=== PATIENT | female | born 1950 | race Caucasian/White ===

== ENCOUNTER 2020-07-01 14:11 | Outpatient (CLI) | payer MEDICARE | END 2020-07-01 14:12 | disposition home or self-care (01) | LOC: BICMAMMO 14:11 | PROVIDERS: ATTEND Family Medicine Sports Medicine | DX: Z12.31 Encounter for screening mammogram for malignant neoplasm of breast (principal); Z13.820 Encounter for screening for osteoporosis; M85.859 Other specified disorders of bone density and structure, unspecified thigh; Z78.0 Asymptomatic menopausal state | CPT/HCPCS: 77063; 77067; 77080 ==

== ENCOUNTER 2020-12-19 02:48 | Inpatient (IN) | payer MEDICARE ==
[2020-12-19] MEDS ORDERED: Albuterol 200 PUFF (6.7GM INHALER) ONE (03:21)
[2020-12-19] MEDS ORDERED: methylPREDNISolone Sod Succ/PF 125 MG/2 ML VIAL ONE (03:22)
[2020-12-19 03:49] LABS: #Eosinphils 0.1 thou/uL (0.0-0.7); #Lymphocytes 1.4 thou/uL (1.20-3.40); #Monocytes 0.6 thou/uL (0.11-0.59); #Neutrophils 4.1 thou/uL (1.40-6.50); %Basophils 0.6 % (0.0-1.0); %Eosinophils 0.8 % (0.0-10.0); %Lymphocytes 23.1 % (21.0-51.0); %Monocytes 9.6 % (0.0-10.0); %Neutrophils 65.8 % (42.0-75.0); Hemoglobin 12.3 g/dL (12.0-16.0); Mean Corpuscular HGB CONC 33.2 g/dL (32.0-36.0); Mean Corpuscular Hemoglobin 30.8 pg (27.0-31.0); Mean Corpuscular Volume 92.7 fL (78.0-98.0); Mean Platelet Volume 7.3 fL (7.4-10.4); Platelet Count 274 thou/uL (130-400); RBC Distribution Width 13.2 % (11.5-14.5); Red Blood Cell (RBC) Count 3.98 mill/uL (4.20-5.40); White Blood Cell (WBC) Count 6.2 thou/uL (4.8-10.8)
[2020-12-19 03:51] LABS: Albumin 3.4 g/dL (3.4-4.8)
[2020-12-19 03:52] LABS: Chloride 105 mmol/L (98-107); Potassium 3.1 mmol/L (3.5-5.1); Sodium 140 mmol/L (136-145)
[2020-12-19 03:53] LABS: Calcium 8.6 mg/dL (7.8-10.44); Glucose 130 mg/dL (83-110)
[2020-12-19 03:54] LABS: Globulin 2.9 g/dL (2.4-3.5); Protein, Total 6.3 g/dL (5.8-8.1)
[2020-12-19 03:55] LABS: Anion Gap 11 mmol/L (10-20); Bilirubin, Total 0.5 mg/dL (0.2-1.2); Carbon Dioxide 27 mmol/L (23-31)
[2020-12-19 03:56] LABS: Alkaline Phosphatase 116 U/L (40-110)
[2020-12-19 03:57] LABS: Calc. Creatinine Clearance 0 mL/min (70-130)
[2020-12-19 03:58] LABS: BUN (Urea Nitrogen) 11 mg/dL (9.8-20.1)
[2020-12-19 03:59] LABS: ALT (SGPT) 11 U/L (8-55); AST (SGOT) 26 U/L (5-34)
[2020-12-19 04:37] LABS: CKMB 22.9 ng/mL (0-6.6)
[2020-12-19] MEDS ORDERED: Furosemide 40 MG/4 ML VIAL ONE (04:41)
[2020-12-19] MEDS ORDERED: Aspirin 325 MG TAB ONE (04:41)
[2020-12-19] MEDS ORDERED: Furosemide 40 MG TAB ONE (04:41)
[2020-12-19] MEDS ORDERED: Ondansetron ODT 4 MG TAB PO PRN (08:53)
[2020-12-19] MEDS ORDERED: methylPREDNISolone Sod Succ/PF 125 MG/2 ML VIAL IVP SCH (09:00)
[2020-12-19] MEDS ORDERED: Enoxaparin Sodium 120 MG/0.8 ML SYRINGE SC SCH (09:00)
[2020-12-19] MEDS ORDERED: Aspirin 325 mg Enteric Coated Tablet PO SCH (09:00)
[2020-12-19] MEDS ORDERED: methylPREDNISolone Sod Succ/PF 125 MG/2 ML VIAL IVP ONE (09:00)
[2020-12-19] MEDS: Famotidine 20 MG TAB PO SCH ×2 (09:09→21:03)
[2020-12-19] MEDS ORDERED: Bacteriostatic Water 30 ML VIAL FS PRN (09:15)
[2020-12-19] MEDS ORDERED: Iopamidol 370 76% 100 ML VIAL ONE (09:35)
[2020-12-19 10:37] LABS: Critical Call Chem Troponin I RESULT DECREASING; Troponin I 2.326 ng/mL (< 0.028)
[2020-12-19] MEDS: Dextrose 5 % And 0.9 % NaCl 1,000 ML IV SCH ×2 (12:16→21:18)
[2020-12-19] MEDS: Nicotine 14 MG PATCH TD SCH (12:31)
[2020-12-19] MEDS ORDERED: Sodium Chloride 0.9% 1,000 ML IV SCH ×2 (12:45→14:45)
[2020-12-19 12:49] VITALS: BMI 29.7
[2020-12-19] MEDS ORDERED: Fentanyl 100 MCG/2 ML VIAL ONE (13:40)
[2020-12-19] MEDS ORDERED: Midazolam HCl 2 mg/2 ml Vial ONE (13:40)
[2020-12-19] MEDS ORDERED: Sodium Chloride 0.9% 200 ML IV PRN (14:34)
[2020-12-19] MEDS ORDERED: Nitroglycerin 0.4 MG TAB (25 Tab Bottle) SL PRN (14:34)
[2020-12-19] MEDS: Acetaminophen/Codeine 30-300mg Tablet PO PRN ×2 (16:48→21:03)
[2020-12-19] MEDS ORDERED: Atorvastatin Calcium 40 MG TAB PO SCH (21:00)
[2020-12-20 06:15] LABS: #Lymphocytes 1.9 thou/uL (1.20-3.40); #Monocytes 1.3 thou/uL (0.11-0.59); #Neutrophils 7.7 thou/uL (1.40-6.50); %Basophils 0.1 % (0.0-1.0); %Eosinophils 0.2 % (0.0-10.0); %Lymphocytes 17.6 % (21.0-51.0); %Monocytes 11.5 % (0.0-10.0); %Neutrophils 70.7 % (42.0-75.0); Hemoglobin 12.1 g/dL (12.0-16.0); Mean Corpuscular HGB CONC 32.5 g/dL (32.0-36.0); Mean Corpuscular Hemoglobin 30.4 pg (27.0-31.0); Mean Corpuscular Volume 93.3 fL (78.0-98.0); Mean Platelet Volume 7.8 fL (7.4-10.4); Platelet Count 330 thou/uL (130-400); RBC Distribution Width 13.3 % (11.5-14.5); White Blood Cell (WBC) Count 10.9 thou/uL (4.8-10.8)
[2020-12-20 06:33] LABS: ALT (SGPT) 11 U/L (8-55); AST (SGOT) 19 U/L (5-34); Albumin 3.3 g/dL (3.4-4.8); Alkaline Phosphatase 104 U/L (40-110); Anion Gap 13 mmol/L (10-20); BUN (Urea Nitrogen) 17 mg/dL (9.8-20.1); Bilirubin, Total 0.5 mg/dL (0.2-1.2); Calc. Creatinine Clearance 85 mL/min (70-130); Calcium 8.8 mg/dL (7.8-10.44); Carbon Dioxide 27 mmol/L (23-31); Chloride 105 mmol/L (98-107); Globulin 2.8 g/dL (2.4-3.5); Glucose 119 mg/dL (83-110); Potassium 3.4 mmol/L (3.5-5.1); Protein, Total 6.1 g/dL (5.8-8.1); Sodium 142 mmol/L (136-145)
[2020-12-20 09:16] LABS: Magnesium 2.1 mg/dL (1.6-2.6)
[2020-12-20] MEDS: Clopidogrel Bisulfate 75 MG TAB PO SCH (10:02)
[2020-12-20] MEDS: Famotidine 20 MG TAB PO SCH ×2 (10:02→21:13)
[2020-12-20] MEDS: Aspirin 81 mg Enteric Coated Tablet PO SCH (10:02)
[2020-12-20] MEDS: Nicotine 14 MG PATCH TD SCH (10:03)
[2020-12-20] MEDS ORDERED: Melatonin 3 MG TAB PO PRN ×2 (10:55→18:29)
[2020-12-20] MEDS ORDERED: traMADol HCl 50 MG TAB PO PRN (10:57)
[2020-12-20] MEDS ORDERED: Cefdinir 300 MG CAP PO SCH (11:00)
[2020-12-20] MEDS ORDERED: predniSONE 20 MG TAB PO SCH (11:00)
[2020-12-20] MEDS ORDERED: Furosemide 20 MG/2 ML VIAL SLOW IVP SCH (11:15)
[2020-12-20] MEDS: Potassium Chloride 20 MEQ TAB PO SCH ×2 (12:12→18:12)
[2020-12-20] MEDS: predniSONE 20 MG TAB PO SCH (18:12)
[2020-12-20] MEDS: Doxycycline 100 MG CAP PO SCH (21:12)
[2020-12-20] MEDS: guaiFENesin ER 600 MG TAB PO SCH (21:13)
[2020-12-20] MEDS: Cholecalciferol 1,000 UNITS (25 MCG) TAB PO SCH (21:13)
[2020-12-20] MEDS: Cefdinir 300 MG CAP PO SCH (21:13)
[2020-12-20] MEDS: Melatonin 3 MG TAB PO SCH (21:15)
[2020-12-21 05:42] LABS: #Lymphocytes 1.4 thou/uL (1.20-3.40); #Monocytes 0.6 thou/uL (0.11-0.59); %Basophils 0.2 % (0.0-1.0); %Eosinophils 0.1 % (0.0-10.0); %Lymphocytes 19.6 % (21.0-51.0); %Monocytes 8.1 % (0.0-10.0); Hemoglobin 11.4 g/dL (12.0-16.0); Mean Corpuscular HGB CONC 32.9 g/dL (32.0-36.0); Mean Corpuscular Hemoglobin 30.7 pg (27.0-31.0); Mean Corpuscular Volume 93.3 fL (78.0-98.0); Mean Platelet Volume 7.3 fL (7.4-10.4); Platelet Count 319 thou/uL (130-400); RBC Distribution Width 13.2 % (11.5-14.5)
[2020-12-21 06:16] LABS: Anion Gap 16 mmol/L (10-20); BUN (Urea Nitrogen) 16 mg/dL (9.8-20.1); Calc. Creatinine Clearance 89 mL/min (70-130); Calcium 8.3 mg/dL (7.8-10.44); Carbon Dioxide 24 mmol/L (23-31); Chloride 102 mmol/L (98-107); Glucose 120 mg/dL (83-110); Potassium 3.5 mmol/L (3.5-5.1); Sodium 138 mmol/L (136-145)
[2020-12-21] MEDS: DULoxetine 30 MG CAP PO SCH (08:52)
[2020-12-21] MEDS: Potassium Chloride 20 MEQ TAB PO SCH (08:52)
[2020-12-21] MEDS: Cefdinir 300 MG CAP PO SCH ×2 (08:52→21:16)
[2020-12-21] MEDS: Ezetimibe 10 MG TAB PO SCH (08:52)
[2020-12-21] MEDS: guaiFENesin ER 600 MG TAB PO SCH ×2 (08:52→21:16)
[2020-12-21] MEDS: Aspirin 81 mg Enteric Coated Tablet PO SCH (08:53)
[2020-12-21] MEDS: Doxycycline 100 MG CAP PO SCH ×2 (08:53→21:15)
[2020-12-21] MEDS: Clopidogrel Bisulfate 75 MG TAB PO SCH (08:53)
[2020-12-21] MEDS: predniSONE 20 MG TAB PO SCH ×2 (08:53→17:56)
[2020-12-21] MEDS: Famotidine 20 MG TAB PO SCH ×2 (08:53→21:16)
[2020-12-21] MEDS: Nicotine 14 MG PATCH TD SCH (09:00)
[2020-12-21] MEDS ORDERED: Atorvastatin Calcium 40 MG TAB PO SCH (21:00)
[2020-12-21] MEDS: Cholecalciferol 1,000 UNITS (25 MCG) TAB PO SCH (21:15)
[2020-12-21] MEDS: Melatonin 3 MG TAB PO SCH (21:18)
[2020-12-21] MEDS: Acetaminophen/Codeine 30-300mg Tablet PO PRN (21:18)
[2020-12-22 06:57] LABS: #Lymphocytes 1.1 thou/uL (1.20-3.40); #Monocytes 0.7 thou/uL (0.11-0.59); #Neutrophils 3.7 thou/uL (1.40-6.50); %Basophils 0.3 % (0.0-1.0); %Eosinophils 0.2 % (0.0-10.0); %Lymphocytes 19.6 % (21.0-51.0); %Monocytes 12.4 % (0.0-10.0); %Neutrophils 67.6 % (42.0-75.0); Hemoglobin 10.9 g/dL (12.0-16.0); Mean Corpuscular HGB CONC 33.8 g/dL (32.0-36.0); Mean Corpuscular Hemoglobin 31.5 pg (27.0-31.0); Mean Corpuscular Volume 93.2 fL (78.0-98.0); Mean Platelet Volume 7.7 fL (7.4-10.4); Platelet Count 291 thou/uL (130-400); RBC Distribution Width 13.1 % (11.5-14.5); Red Blood Cell (RBC) Count 3.45 mill/uL (4.20-5.40); White Blood Cell (WBC) Count 5.5 thou/uL (4.8-10.8)
[2020-12-22 07:09] LABS: Anion Gap 11 mmol/L (10-20); BUN (Urea Nitrogen) 14 mg/dL (9.8-20.1); Calc. Creatinine Clearance 97 mL/min (70-130); Calcium 8.5 mg/dL (7.8-10.44); Carbon Dioxide 27 mmol/L (23-31); Chloride 103 mmol/L (98-107); Glucose 112 mg/dL (83-110); Potassium 3.8 mmol/L (3.5-5.1); Sodium 137 mmol/L (136-145)
[2020-12-22] MEDS: Isosorbide Dinitrate 5 MG TAB PO SCH ×2 (09:30→21:01)
[2020-12-22] MEDS: Aspirin 81 mg Enteric Coated Tablet PO SCH (09:32)
[2020-12-22] MEDS: Doxycycline 100 MG CAP PO SCH ×2 (09:32→20:58)
[2020-12-22] MEDS: Ezetimibe 10 MG TAB PO SCH (09:32)
[2020-12-22] MEDS: Cefdinir 300 MG CAP PO SCH ×2 (09:32→18:48)
[2020-12-22] MEDS: Potassium Chloride 20 MEQ TAB PO SCH (09:33)
[2020-12-22] MEDS: guaiFENesin ER 600 MG TAB PO SCH ×2 (09:33→20:58)
[2020-12-22] MEDS: Famotidine 20 MG TAB PO SCH ×2 (09:33→20:58)
[2020-12-22] MEDS: predniSONE 20 MG TAB PO SCH ×2 (09:33→17:28)
[2020-12-22] MEDS: Clopidogrel Bisulfate 75 MG TAB PO SCH (09:34)
[2020-12-22] MEDS: DULoxetine 30 MG CAP PO SCH (09:35)
[2020-12-22] MEDS: Nicotine 14 MG PATCH TD SCH (09:42)
[2020-12-22] MEDS ORDERED: Cefdinir 300 MG CAP PO SCH (09:45)
[2020-12-22] MEDS: Cholecalciferol 1,000 UNITS (25 MCG) TAB PO SCH (20:58)
[2020-12-22] MEDS: Acetaminophen/Codeine 30-300mg Tablet PO PRN (20:59)
[2020-12-22] MEDS: Melatonin 3 MG TAB PO SCH (20:59)
[2020-12-23] MEDS: Cefdinir 300 MG CAP PO SCH (06:23)
[2020-12-23] MEDS: Famotidine 20 MG TAB PO SCH (09:14)
[2020-12-23] MEDS: Aspirin 81 mg Enteric Coated Tablet PO SCH (09:14)
[2020-12-23] MEDS: predniSONE 20 MG TAB PO SCH (09:14)
[2020-12-23] MEDS: Isosorbide Dinitrate 5 MG TAB PO SCH (09:14)
[2020-12-23] MEDS: DULoxetine 30 MG CAP PO SCH (09:14)
[2020-12-23] MEDS: Clopidogrel Bisulfate 75 MG TAB PO SCH (09:14)
[2020-12-23] MEDS: Doxycycline 100 MG CAP PO SCH (09:14)
[2020-12-23] MEDS: guaiFENesin ER 600 MG TAB PO SCH (09:15)
[2020-12-23] MEDS: Ezetimibe 10 MG TAB PO SCH (09:15)
[2020-12-23] MEDS: Potassium Chloride 20 MEQ TAB PO SCH (09:15)
[2020-12-23 11:56] VITALS: BP 134/69; TEMP 98.4
== END 2020-12-23 13:58 | disposition home or self-care (01) | DRG 280 ==
LOC: ERS 02:48 → 3SE 04:53
PROVIDERS: ADMIT Internal Medicine; ATTEND Internal Medicine
PROC: 4A023N7 Measurement of Cardiac Sampling and Pressure, Left Heart, Percutaneous Approach (ICD-10-PCS; principal; 2020-12-19)
PROC: B2111ZZ Fluoroscopy of Multiple Coronary Arteries using Low Osmolar Contrast (ICD-10-PCS; 2020-12-19)
DX: I11.0 Hypertensive heart disease with heart failure (principal); J96.01 Acute respiratory failure with hypoxia; I21.A1 Myocardial infarction type 2; J44.1 Chronic obstructive pulmonary disease with (acute) exacerbation; I50.33 Acute on chronic diastolic (congestive) heart failure; I25.110 Atherosclerotic heart disease of native coronary artery with unstable angina pectoris; E87.6 Hypokalemia; F17.210 Nicotine dependence, cigarettes, uncomplicated; D53.9 Nutritional anemia, unspecified; E78.5 Hyperlipidemia, unspecified; I08.1 Rheumatic disorders of both mitral and tricuspid valves; R53.81 Other malaise; I95.9 Hypotension, unspecified; I48.91 Unspecified atrial fibrillation; Z88.1 Allergy status to other antibiotic agents; Z88.2 Allergy status to sulfonamides; Z71.6 Tobacco abuse counseling
CPT/HCPCS: 36415; 71045; 71046; 80048; 80053; 82553; 83735; 83880; 84484; 85025; 93005; 93306; 93458; 94640; 96374; 96375; 99152; J1940; J2250; J2930; J3010; J7042; J7050; J7512; J7620; Q9967; U0003; U0005

== ENCOUNTER 2020-12-30 08:39 | Inpatient (IN) | payer MEDICARE ==
[2020-12-30] MEDS ORDERED: Dexamethasone 10 MG/ML VIAL ONE (09:25)
[2020-12-30] MEDS ORDERED: Aspirin Chewable 81 MG TAB ONE (09:25)
[2020-12-30] MEDS ORDERED: Magnesium 2 GM/50 ML BAG (IN WATER) ONE (09:25)
[2020-12-30 09:46] LABS: Actual Bicarbonate (HCO3v) 26 mEq/L (22-28); Analyzer IN Cardio ER; Base Excess 2.2 mEq/L (-2.0 to +3.0); Calcium, Ionized (venous) 1.06 mmol/L (1.16-1.32); Chloride (VBG) 105 mmol/L (98-106); Hemoglobin (Hb) 11.8 g/dL (11.7-16.1); Potassium (VBG) 2.78 mmol/L (3.70-5.30); Sodium 136.6 mmol/L (133-146); pH (venous) 7.44 (7.32-7.43)
[2020-12-30] MEDS ORDERED: Ipratropium Bromide 2.5 ml Neb ONE (09:57)
[2020-12-30] MEDS ORDERED: Albuterol Sulfate 2.5 mg/0.5 ml Neb ONE (09:57)
[2020-12-30 09:59] LABS: #Lymphocytes 1.2 thou/uL (1.20-3.40); #Monocytes 0.8 thou/uL (0.11-0.59); #Neutrophils 7.7 thou/uL (1.40-6.50); %Basophils 0.2 % (0.0-1.0); %Eosinophils 0.3 % (0.0-10.0); %Lymphocytes 12.5 % (21.0-51.0); %Monocytes 8.4 % (0.0-10.0); %Neutrophils 78.7 % (42.0-75.0); Hemoglobin 10.5 g/dL (12.0-16.0); Mean Corpuscular HGB CONC 31.8 g/dL (32.0-36.0); Mean Corpuscular Hemoglobin 29.5 pg (27.0-31.0); Mean Corpuscular Volume 92.6 fL (78.0-98.0); Mean Platelet Volume 7.3 fL (7.4-10.4); Platelet Count 318 thou/uL (130-400); RBC Distribution Width 13.4 % (11.5-14.5); Red Blood Cell (RBC) Count 3.56 mill/uL (4.20-5.40); White Blood Cell (WBC) Count 9.7 thou/uL (4.8-10.8)
[2020-12-30] MEDS ORDERED: Cefepime 2 GM VIAL ONE (10:09)
[2020-12-30 10:19] LABS: ALT (SGPT) 9 U/L (8-55); AST (SGOT) 12 U/L (5-34); Albumin 3.1 g/dL (3.4-4.8); Alkaline Phosphatase 73 U/L (40-110); Anion Gap 12 mmol/L (10-20); BUN (Urea Nitrogen) 15 mg/dL (9.8-20.1); Bilirubin, Total 0.5 mg/dL (0.2-1.2); Calc. Creatinine Clearance 0 mL/min (70-130); Calcium 8.6 mg/dL (7.8-10.44); Carbon Dioxide 27 mmol/L (23-31); Chloride 106 mmol/L (98-107); Globulin 2.7 g/dL (2.4-3.5); Glucose 120 mg/dL (83-110); Protein, Total 5.8 g/dL (5.8-8.1); Sodium 142 mmol/L (136-145)
[2020-12-30 10:28] LABS: Potassium 2.9 mmol/L (3.5-5.1)
[2020-12-30 10:47] LABS: CKMB 1.9 ng/mL (0-6.6)
[2020-12-30] MEDS ORDERED: Potassium Chloride 20 MEQ TAB ONE (12:08)
[2020-12-30 12:24] LABS: Magnesium 1.7 mg/dL (1.6-2.6)
[2020-12-30] MEDS ORDERED: VANCOMYCIN 1.25 GM/250 ML BAG 1.25 GM in Premix Bag 1 BAG IVPB SCH (12:45)
[2020-12-30 14:43] LABS: Troponin I 0.279 ng/mL (< 0.028)
[2020-12-30 14:45] LABS: Anion Gap 10 mmol/L (10-20); BUN (Urea Nitrogen) 14 mg/dL (9.8-20.1); Calc. Creatinine Clearance 0 mL/min (70-130); Calcium 8.3 mg/dL (7.8-10.44); Carbon Dioxide 27 mmol/L (23-31); Chloride 107 mmol/L (98-107); Glucose 138 mg/dL (83-110); Potassium 3.2 mmol/L (3.5-5.1); Sodium 141 mmol/L (136-145)
[2020-12-30] MEDS ORDERED: Dextrose 5% in Water 1,000 ML IV PRN (15:06)
[2020-12-30] MEDS ORDERED: Dextrose 50% Abboject 50 ML SYRINGE SLOW IVP PRN (15:06)
[2020-12-30] MEDS ORDERED: HumaLOG 300 UNITS/3 ML VIAL SC PRN ×2 (15:06)
[2020-12-30] MEDS: Acetaminophen 325 MG TAB PO PRN (15:40)
[2020-12-30 15:56] VITALS: BMI 30.7
[2020-12-30] MEDS ORDERED: Non-Formulary Item 1 EACH (Albuterol Sulfate Hfa (Or) 200 PUFF Inh) INH PRN (16:50)
[2020-12-30 17:18] LABS: Troponin I 0.258 ng/mL (< 0.028)
[2020-12-30] MEDS: Cefepime 1 GM in Sodium Chloride 0.9% 100 ML IVPB SCH (17:31)
[2020-12-30] MEDS ORDERED: Cyclobenzaprine 10 MG TAB PO SCH (20:30)
[2020-12-30] MEDS: Famotidine 20 MG TAB PO SCH (20:38)
[2020-12-30] MEDS ORDERED: methylPREDNISolone Sod Succ/PF 125 MG/2 ML VIAL IVP SCH (23:15)
[2020-12-31] MEDS: Cefepime 1 GM in Sodium Chloride 0.9% 100 ML IVPB SCH ×2 (01:19→11:56)
[2020-12-31] MEDS: methylPREDNISolone Sod Succ 40 MG VIAL IVP SCH ×2 (06:13→19:32)
[2020-12-31] MEDS: Acetaminophen 325 MG TAB PO PRN ×2 (06:15→21:00)
[2020-12-31] MEDS: DULoxetine 30 MG CAP PO SCH (08:16)
[2020-12-31] MEDS: Famotidine 20 MG TAB PO SCH (08:16)
[2020-12-31] MEDS: Enoxaparin Sodium 40 MG/0.4 ML SYRINGE SC SCH (08:16)
[2020-12-31] MEDS: Ezetimibe 10 MG TAB PO SCH (08:16)
[2020-12-31] MEDS: Aspirin Chewable 81 MG TAB PO SCH (08:16)
[2020-12-31] MEDS: Isosorbide Dinitrate 5 MG TAB PO SCH (08:17)
[2020-12-31] MEDS: Clopidogrel Bisulfate 75 MG TAB PO SCH (08:17)
[2020-12-31] MEDS ORDERED: Nitroglycerin 0.4 MG TAB (25 Tab Bottle) SL PRN (09:11)
[2020-12-31] MEDS ORDERED: Furosemide 40 MG/4 ML VIAL SLOW IVP SCH (09:15)
[2020-12-31 09:31] LABS: #Monocytes 0.4 thou/uL (0.11-0.59); #Neutrophils 13.4 thou/uL (1.40-6.50); %Basophils 0.1 % (0.0-1.0); %Eosinophils 0.1 % (0.0-10.0); %Lymphocytes 6.5 % (21.0-51.0); %Monocytes 2.5 % (0.0-10.0); %Neutrophils 90.8 % (42.0-75.0); Hemoglobin 10.8 g/dL (12.0-16.0); Mean Corpuscular Volume 94.1 fL (78.0-98.0); Mean Platelet Volume 7.3 fL (7.4-10.4); Platelet Count 294 thou/uL (130-400); RBC Distribution Width 13.3 % (11.5-14.5); Red Blood Cell (RBC) Count 3.48 mill/uL (4.20-5.40); White Blood Cell (WBC) Count 14.8 thou/uL (4.8-10.8)
[2020-12-31 09:59] LABS: Anion Gap 14 mmol/L (10-20); BUN (Urea Nitrogen) 15 mg/dL (9.8-20.1); Calc. Creatinine Clearance 84 mL/min (70-130); Calcium 8.4 mg/dL (7.8-10.44); Carbon Dioxide 21 mmol/L (23-31); Chloride 108 mmol/L (98-107); Glucose 178 mg/dL (83-110); Magnesium 2.3 mg/dL (1.6-2.6); Sodium 139 mmol/L (136-145)
[2020-12-31] MEDS ORDERED: Vancomycin HCl 1.25 GM in Sodium Chloride 0.9% 250 ML 250 ML IVPB SCH (14:00)
[2020-12-31] MEDS: Cefepime 2 GM in Sodium Chloride 0.9% 100 ML IVPB SCH (19:32)
[2020-12-31] MEDS ORDERED: Non-Formulary Item 1 EACH (Melatonin [Melatonin] 10 MG Tablet) PO SCH (21:00)
[2020-12-31] MEDS: Melatonin 3 MG TAB PO SCH (21:01)
[2021-01-01] MEDS: Cefepime 2 GM in Sodium Chloride 0.9% 100 ML IVPB SCH ×3 (02:24→18:33)
[2021-01-01 04:55] LABS: #Monocytes 0.9 thou/uL (0.11-0.59); %Basophils 0.1 % (0.0-1.0); %Eosinophils 0.1 % (0.0-10.0); %Lymphocytes 5.6 % (21.0-51.0); %Neutrophils 89.3 % (42.0-75.0); Hemoglobin 9.8 g/dL (12.0-16.0); Mean Corpuscular HGB CONC 33.2 g/dL (32.0-36.0); Mean Corpuscular Hemoglobin 31.2 pg (27.0-31.0); Mean Corpuscular Volume 93.8 fL (78.0-98.0); Mean Platelet Volume 7.7 fL (7.4-10.4); Platelet Count 285 thou/uL (130-400); RBC Distribution Width 13.5 % (11.5-14.5); Red Blood Cell (RBC) Count 3.16 mill/uL (4.20-5.40)
[2021-01-01 05:21] LABS: Anion Gap 10 mmol/L (10-20); BUN (Urea Nitrogen) 20 mg/dL (9.8-20.1); Calc. Creatinine Clearance 93 mL/min (70-130); Calcium 8.5 mg/dL (7.8-10.44); Carbon Dioxide 26 mmol/L (23-31); Chloride 106 mmol/L (98-107); Glucose 145 mg/dL (83-110); Potassium 3.5 mmol/L (3.5-5.1); Sodium 138 mmol/L (136-145)
[2021-01-01] MEDS: methylPREDNISolone Sod Succ 40 MG VIAL IVP SCH ×2 (05:26→18:35)
[2021-01-01] MEDS ORDERED: Cholecalciferol 1,000 UNITS (25 MCG) TAB PO SCH (09:00)
[2021-01-01] MEDS: Cholecalciferol 1,000 UNITS (25 MCG) TAB PO SCH (09:19)
[2021-01-01] MEDS: Isosorbide Dinitrate 5 MG TAB PO SCH (09:19)
[2021-01-01] MEDS: Clopidogrel Bisulfate 75 MG TAB PO SCH (09:20)
[2021-01-01] MEDS: DULoxetine 30 MG CAP PO SCH (09:20)
[2021-01-01] MEDS: Ezetimibe 10 MG TAB PO SCH (09:20)
[2021-01-01] MEDS: Aspirin Chewable 81 MG TAB PO SCH (09:21)
[2021-01-01] MEDS: Enoxaparin Sodium 40 MG/0.4 ML SYRINGE SC SCH (09:27)
[2021-01-01] MEDS ORDERED: Furosemide 40 MG/4 ML VIAL SLOW IVP SCH (09:30)
[2021-01-01] MEDS: Acetaminophen/Codeine 30-300mg Tablet PO PRN (18:32)
[2021-01-01] MEDS: Melatonin 3 MG TAB PO SCH (19:59)
[2021-01-02] MEDS: Acetaminophen/Codeine 30-300mg Tablet PO PRN ×2 (02:59→20:14)
[2021-01-02] MEDS: Cefepime 2 GM in Sodium Chloride 0.9% 100 ML IVPB SCH ×3 (03:00→18:15)
[2021-01-02 05:19] LABS: #Eosinphils 0.1 thou/uL (0.0-0.7); #Monocytes 0.6 thou/uL (0.11-0.59); #Neutrophils 11.5 thou/uL (1.40-6.50); %Basophils 0.1 % (0.0-1.0); %Eosinophils 0.9 % (0.0-10.0); %Lymphocytes 7.8 % (21.0-51.0); %Monocytes 4.7 % (0.0-10.0); %Neutrophils 86.6 % (42.0-75.0); Hemoglobin 10.2 g/dL (12.0-16.0); Mean Corpuscular HGB CONC 32.6 g/dL (32.0-36.0); Mean Corpuscular Hemoglobin 30.3 pg (27.0-31.0); Mean Platelet Volume 7.5 fL (7.4-10.4); Platelet Count 247 thou/uL (130-400); RBC Distribution Width 13.2 % (11.5-14.5); Red Blood Cell (RBC) Count 3.38 mill/uL (4.20-5.40); White Blood Cell (WBC) Count 13.3 thou/uL (4.8-10.8)
[2021-01-02] MEDS: methylPREDNISolone Sod Succ 40 MG VIAL IVP SCH (05:25)
[2021-01-02 05:27] LABS: Anion Gap 11 mmol/L (10-20); BUN (Urea Nitrogen) 17 mg/dL (9.8-20.1); Calc. Creatinine Clearance 96 mL/min (70-130); Calcium 8.2 mg/dL (7.8-10.44); Carbon Dioxide 28 mmol/L (23-31); Chloride 104 mmol/L (98-107); Glucose 148 mg/dL (83-110); Potassium 3.7 mmol/L (3.5-5.1); Sodium 139 mmol/L (136-145)
[2021-01-02] MEDS: Aspirin Chewable 81 MG TAB PO SCH (08:32)
[2021-01-02] MEDS: DULoxetine 30 MG CAP PO SCH (08:33)
[2021-01-02] MEDS: Clopidogrel Bisulfate 75 MG TAB PO SCH (08:33)
[2021-01-02] MEDS: Enoxaparin Sodium 40 MG/0.4 ML SYRINGE SC SCH (08:33)
[2021-01-02] MEDS: Cholecalciferol 1,000 UNITS (25 MCG) TAB PO SCH (08:33)
[2021-01-02] MEDS: Ezetimibe 10 MG TAB PO SCH (08:33)
[2021-01-02] MEDS: Isosorbide Dinitrate 5 MG TAB PO SCH (08:33)
[2021-01-02] MEDS ORDERED: Furosemide 40 MG/4 ML VIAL SLOW IVP SCH (09:00)
[2021-01-02] MEDS: Melatonin 3 MG TAB PO SCH (20:05)
[2021-01-03] MEDS: Cefepime 2 GM in Sodium Chloride 0.9% 100 ML IVPB SCH ×3 (02:39→17:38)
[2021-01-03] MEDS: Acetaminophen/Codeine 30-300mg Tablet PO PRN ×2 (05:05→21:13)
[2021-01-03 05:17] LABS: #Lymphocytes 2.1 thou/uL (1.20-3.40); #Monocytes 0.9 thou/uL (0.11-0.59); #Neutrophils 11.4 thou/uL (1.40-6.50); %Eosinophils 0.1 % (0.0-10.0); %Lymphocytes 14.5 % (21.0-51.0); %Monocytes 6.4 % (0.0-10.0); %Neutrophils 78.9 % (42.0-75.0); Hemoglobin 10.7 g/dL (12.0-16.0); Mean Corpuscular HGB CONC 31.6 g/dL (32.0-36.0); Mean Corpuscular Hemoglobin 29.9 pg (27.0-31.0); Mean Corpuscular Volume 94.6 fL (78.0-98.0); Mean Platelet Volume 8.2 fL (7.4-10.4); Platelet Count 256 thou/uL (130-400); RBC Distribution Width 13.2 % (11.5-14.5); Red Blood Cell (RBC) Count 3.59 mill/uL (4.20-5.40); White Blood Cell (WBC) Count 14.4 thou/uL (4.8-10.8)
[2021-01-03 05:35] LABS: Anion Gap 12 mmol/L (10-20); BUN (Urea Nitrogen) 22 mg/dL (9.8-20.1); Calc. Creatinine Clearance 97 mL/min (70-130); Calcium 8.6 mg/dL (7.8-10.44); Carbon Dioxide 29 mmol/L (23-31); Chloride 102 mmol/L (98-107); Glucose 91 mg/dL (83-110); Potassium 3.3 mmol/L (3.5-5.1); Sodium 140 mmol/L (136-145)
[2021-01-03] MEDS: predniSONE 20 MG TAB PO SCH (08:19)
[2021-01-03] MEDS: Aspirin Chewable 81 MG TAB PO SCH (08:19)
[2021-01-03] MEDS: DULoxetine 30 MG CAP PO SCH (08:19)
[2021-01-03] MEDS: Ezetimibe 10 MG TAB PO SCH (08:19)
[2021-01-03] MEDS: Furosemide 40 MG TAB PO SCH (08:19)
[2021-01-03] MEDS: Enoxaparin Sodium 40 MG/0.4 ML SYRINGE SC SCH (08:19)
[2021-01-03] MEDS: Cholecalciferol 1,000 UNITS (25 MCG) TAB PO SCH (08:19)
[2021-01-03] MEDS: Isosorbide Dinitrate 5 MG TAB PO SCH (08:19)
[2021-01-03] MEDS: Clopidogrel Bisulfate 75 MG TAB PO SCH (08:19)
[2021-01-03] MEDS ORDERED: Potassium Chloride 20 MEQ TAB PO SCH ×2 (08:30→14:00)
[2021-01-03 14:28] LABS: Magnesium 2.1 mg/dL (1.6-2.6)
[2021-01-03] MEDS: Melatonin 3 MG TAB PO SCH (21:10)
[2021-01-04] MEDS: Cefepime 2 GM in Sodium Chloride 0.9% 100 ML IVPB SCH (02:11)
[2021-01-04] MEDS: Acetaminophen/Codeine 30-300mg Tablet PO PRN (03:02)
[2021-01-04 05:19] LABS: #Lymphocytes 1.6 thou/uL (1.20-3.40); #Monocytes 0.6 thou/uL (0.11-0.59); #Neutrophils 9.6 thou/uL (1.40-6.50); %Basophils 0.1 % (0.0-1.0); %Eosinophils 0.3 % (0.0-10.0); %Lymphocytes 13.5 % (21.0-51.0); %Monocytes 4.6 % (0.0-10.0); %Neutrophils 81.5 % (42.0-75.0); Hemoglobin 9.3 g/dL (12.0-16.0); Mean Corpuscular HGB CONC 32.4 g/dL (32.0-36.0); Mean Corpuscular Hemoglobin 30.1 pg (27.0-31.0); Mean Corpuscular Volume 92.9 fL (78.0-98.0); Mean Platelet Volume 7.9 fL (7.4-10.4); Platelet Count 275 thou/uL (130-400); RBC Distribution Width 13.2 % (11.5-14.5); Red Blood Cell (RBC) Count 3.08 mill/uL (4.20-5.40); White Blood Cell (WBC) Count 11.8 thou/uL (4.8-10.8)
[2021-01-04 05:39] LABS: Anion Gap 11 mmol/L (10-20); BUN (Urea Nitrogen) 19 mg/dL (9.8-20.1); Calc. Creatinine Clearance 105 mL/min (70-130); Calcium 8.3 mg/dL (7.8-10.44); Carbon Dioxide 32 mmol/L (23-31); Chloride 101 mmol/L (98-107); Glucose 106 mg/dL (83-110); Potassium 3.6 mmol/L (3.5-5.1); Sodium 140 mmol/L (136-145)
[2021-01-04] MEDS: Enoxaparin Sodium 40 MG/0.4 ML SYRINGE SC SCH (08:46)
[2021-01-04] MEDS: predniSONE 20 MG TAB PO SCH (08:47)
[2021-01-04] MEDS: Clopidogrel Bisulfate 75 MG TAB PO SCH (08:47)
[2021-01-04] MEDS: Isosorbide Dinitrate 5 MG TAB PO SCH (08:47)
[2021-01-04] MEDS: Furosemide 40 MG TAB PO SCH (08:47)
[2021-01-04] MEDS: Aspirin Chewable 81 MG TAB PO SCH (08:47)
[2021-01-04] MEDS: Ezetimibe 10 MG TAB PO SCH (08:47)
[2021-01-04] MEDS: DULoxetine 30 MG CAP PO SCH (08:47)
[2021-01-04] MEDS: Cholecalciferol 1,000 UNITS (25 MCG) TAB PO SCH (08:48)
[2021-01-04 11:23] VITALS: TEMP 98.3
[2021-01-04 15:51] VITALS: BP 131/64
== END 2021-01-04 16:32 | disposition home or self-care (01) | DRG 280 ==
LOC: ERS 08:39 → 2NO 11:59
PROVIDERS: ADMIT Internal Medicine; ATTEND Internal Medicine
DX: I11.0 Hypertensive heart disease with heart failure (principal); J18.9 Pneumonia, unspecified organism; I21.A1 Myocardial infarction type 2; J96.01 Acute respiratory failure with hypoxia; I50.33 Acute on chronic diastolic (congestive) heart failure; J44.1 Chronic obstructive pulmonary disease with (acute) exacerbation; J44.0 Chronic obstructive pulmonary disease with (acute) lower respiratory infection; L03.116 Cellulitis of left lower limb; Z20.822 Contact with and (suspected) exposure to COVID-19; E78.5 Hyperlipidemia, unspecified; I25.10 Atherosclerotic heart disease of native coronary artery without angina pectoris; I73.9 Peripheral vascular disease, unspecified; E11.65 Type 2 diabetes mellitus with hyperglycemia; D64.9 Anemia, unspecified; M06.9 Rheumatoid arthritis, unspecified; F17.210 Nicotine dependence, cigarettes, uncomplicated; Z88.2 Allergy status to sulfonamides; Z88.1 Allergy status to other antibiotic agents; Z88.8 Allergy status to other drugs, medicaments and biological substances; Z79.82 Long term (current) use of aspirin; Z79.51 Long term (current) use of inhaled steroids; Z79.52 Long term (current) use of systemic steroids; Z79.899 Other long term (current) drug therapy
CPT/HCPCS: 36415; 36416; 71045; 80048; 80053; 82553; 82805; 83605; 83735; 83880; 84484; 85025; 86140; 87040; 87070; 87205; 93005; 94640; 96365; 96375; J0692; J1100; J1650; J1815; J1940; J1956; J2920; J2930; J3370; J3475; J3490; J7512; J7611; J7620

== ENCOUNTER 2021-01-05 02:42 | Inpatient (IN) | payer MEDICARE ==
[2021-01-05] MEDS ORDERED: Ondansetron PF 4 MG/2 ML Vial ONE (03:25)
[2021-01-05] MEDS ORDERED: Morphine 4 MG/ML VIAL ONE (03:25)
[2021-01-05 03:48] LABS: Band 7 % (5-11); Hemoglobin 10.3 g/dL (12.0-16.0); Lymphocytes 10 % (21-51); MDiff Complete? YES; Mean Corpuscular HGB CONC 33.6 g/dL (32.0-36.0); Mean Corpuscular Volume 92.3 fL (78.0-98.0); Mean Platelet Volume 7.3 fL (7.4-10.4); Neutrophil 83 % (42-75); Platelet Count 309 thou/uL (130-400); RBC Distribution Width 13.2 % (11.5-14.5); Red Blood Cell (RBC) Count 3.33 mill/uL (4.20-5.40); White Blood Cell (WBC) Count 15.3 thou/uL (4.8-10.8)
[2021-01-05 03:49] LABS: Albumin 3.1 g/dL (3.4-4.8)
[2021-01-05 03:50] LABS: Chloride 97 mmol/L (98-107); Potassium 3.5 mmol/L (3.5-5.1); Sodium 140 mmol/L (136-145)
[2021-01-05 03:51] LABS: Calcium 8.6 mg/dL (7.8-10.44); Glucose 103 mg/dL (83-110)
[2021-01-05 03:52] LABS: Globulin 3.1 g/dL (2.4-3.5); Protein, Total 6.2 g/dL (5.8-8.1)
[2021-01-05 03:53] LABS: Carbon Dioxide 32 mmol/L (23-31)
[2021-01-05 03:54] LABS: Alkaline Phosphatase 72 U/L (40-110)
[2021-01-05 03:55] LABS: Calc. Creatinine Clearance 0 mL/min (70-130)
[2021-01-05 03:56] LABS: BUN (Urea Nitrogen) 16 mg/dL (9.8-20.1)
[2021-01-05 03:57] LABS: ALT (SGPT) 22 U/L (8-55); AST (SGOT) 18 U/L (5-34)
[2021-01-05 03:58] LABS: Anion Gap 15 mmol/L (10-20)
[2021-01-05 04:08] LABS: CKMB 1.2 ng/mL (0-6.6)
[2021-01-05] MEDS ORDERED: Furosemide 40 MG/4 ML VIAL ONE (05:30)
[2021-01-05] MEDS ORDERED: HYDROmorphone 0.5 MG/0.5 ML SYRINGE ONE (06:21)
[2021-01-05] MEDS ORDERED: Digoxin 0.5 MG/2 ML AMP ONE (06:21)
[2021-01-05 07:02] LABS: Troponin I 0.146 ng/mL (< 0.028)
[2021-01-05] MEDS ORDERED: Enoxaparin Sodium 80 MG/0.8 ML SYRINGE ONE (07:07)
[2021-01-05] MEDS ORDERED: Pharmacy to Dose ALL ABX IVPB PRN (08:41)
[2021-01-05] MEDS ORDERED: Clopidogrel Bisulfate 75 MG TAB PO SCH (09:00)
[2021-01-05] MEDS ORDERED: Enoxaparin Sodium 30 MG/0.3 ML SYRINGE ONE (09:05)
[2021-01-05] MEDS ORDERED: Enoxaparin Sodium 40 MG/0.4 ML SYRINGE ONE (09:05)
[2021-01-05] MEDS ORDERED: Amiodarone 150 MG in Dextrose 5% in Water 100 ML IVPB SCH (09:45)
[2021-01-05] MEDS ORDERED: Digoxin 0.5 MG/2 ML AMP SLOW IVP SCH (09:45)
[2021-01-05 10:06] LABS: Troponin I 0.141 ng/mL (< 0.028)
[2021-01-05 10:16] LABS: SARS-CoV-2 NAA Rapid Test Not Detected (NotDetected)
[2021-01-05] MEDS: Amiodarone 450 MG in Dextrose 5% in Water 250 ML IVPB SCH ×2 (10:30→21:52)
[2021-01-05] MEDS: Acetaminophen 325 MG TAB PO PRN (12:43)
[2021-01-05] MEDS: Aspirin 81 mg Enteric Coated Tablet PO SCH (12:43)
[2021-01-05] MEDS: cefTRIAXone\\ROCEPHIN 1 GM in Sodium Chloride 0.9% 100 ML IVPB SCH (12:44)
[2021-01-05] MEDS: Vancomycin 1 GM in Premix Bag 1 BAG IVPB SCH ×2 (12:44→21:51)
[2021-01-05] MEDS: guaiFENesin/DM ER PO SCH ×2 (12:44→21:50)
[2021-01-05] MEDS: Famotidine/PF 20 mg/2ml Vial SLOW IVP SCH ×2 (12:44→21:55)
[2021-01-05] MEDS: methylPREDNISolone Sod Succ 40 MG VIAL IVP SCH ×3 (12:44→21:51)
[2021-01-05] MEDS: DULoxetine 30 MG CAP PO SCH (12:45)
[2021-01-05] MEDS: Mometasone 200 MCG/Formoterol 5 MCG 120 PUFF INHALER INH SCH (18:27)
[2021-01-05] MEDS ORDERED: Enoxaparin Sodium 80 MG/0.8 ML SYRINGE SC SCH (21:00)
[2021-01-05] MEDS: traMADol HCl 50 MG TAB PO PRN (21:49)
[2021-01-05] MEDS: Famotidine 20 MG TAB PO SCH (21:50)
[2021-01-06 04:06] LABS: #Basophils 0.1 thou/uL (0.0-0.2); #Lymphocytes 0.7 thou/uL (1.20-3.40); #Monocytes 0.2 thou/uL (0.11-0.59); #Neutrophils 8.9 thou/uL (1.40-6.50); %Basophils 0.8 % (0.0-1.0); %Eosinophils 0.1 % (0.0-10.0); %Lymphocytes 7.2 % (21.0-51.0); %Monocytes 2.1 % (0.0-10.0); %Neutrophils 89.9 % (42.0-75.0); Hemoglobin 9.1 g/dL (12.0-16.0); Mean Corpuscular HGB CONC 32.6 g/dL (32.0-36.0); Mean Corpuscular Hemoglobin 30.5 pg (27.0-31.0); Mean Corpuscular Volume 93.6 fL (78.0-98.0); Mean Platelet Volume 7.6 fL (7.4-10.4); Platelet Count 274 thou/uL (130-400); Red Blood Cell (RBC) Count 2.97 mill/uL (4.20-5.40); White Blood Cell (WBC) Count 9.9 thou/uL (4.8-10.8)
[2021-01-06] MEDS: methylPREDNISolone Sod Succ 40 MG VIAL IVP SCH (04:09)
[2021-01-06] MEDS: traMADol HCl 50 MG TAB PO PRN ×2 (04:17→21:57)
[2021-01-06 05:17] LABS: ALT (SGPT) 16 U/L (8-55); AST (SGOT) 11 U/L (5-34); Albumin 2.8 g/dL (3.4-4.8); Alkaline Phosphatase 66 U/L (40-110); BUN (Urea Nitrogen) 16 mg/dL (9.8-20.1); Bilirubin, Total 0.7 mg/dL (0.2-1.2); Calc. Creatinine Clearance 98 mL/min (70-130); Calcium 8.1 mg/dL (7.8-10.44); Carbon Dioxide 33 mmol/L (23-31); Chloride 97 mmol/L (98-107); Globulin 2.8 g/dL (2.4-3.5); Glucose 140 mg/dL (83-110); Protein, Total 5.6 g/dL (5.8-8.1); Sodium 138 mmol/L (136-145)
[2021-01-06] MEDS: Mometasone 200 MCG/Formoterol 5 MCG 120 PUFF INHALER INH SCH (06:42)
[2021-01-06 06:46] LABS: Anion Gap 12 mmol/L (10-20)
[2021-01-06] MEDS ORDERED: Loratadine 10 MG TAB PO PRN (07:33)
[2021-01-06] MEDS ORDERED: Artificial Tear Sol 15 ML BOT EA EYE PRN (07:33)
[2021-01-06] MEDS ORDERED: Benzonatate 100 MG CAP PO PRN (07:33)
[2021-01-06] MEDS ORDERED: hydrALAZINE 20 MG/ML VIAL SLOW IVP PRN (07:33)
[2021-01-06] MEDS ORDERED: Zolpidem Tartrate 5 MG TAB PO PRN (07:33)
[2021-01-06] MEDS ORDERED: Metoclopramide HCl 10 MG/2 ML VIAL IVP PRN (07:33)
[2021-01-06] MEDS ORDERED: Hydrocerin (Eucerin) Cream 120 gm Jar TOP PRN (07:33)
[2021-01-06] MEDS ORDERED: Senokot S 8.6-50 MG TAB PO PRN (07:33)
[2021-01-06] MEDS ORDERED: Calcium Carbonate 500 MG ChewTAB PO PRN (07:33)
[2021-01-06] MEDS ORDERED: Bisacodyl 5 MG TAB PO PRN (07:33)
[2021-01-06] MEDS ORDERED: GUAIFENESIN SF SOLN 200 MG/10 ML UDCUP PO PRN (07:33)
[2021-01-06] MEDS ORDERED: Loperamide HCl 2 MG CAP PO PRN (07:33)
[2021-01-06] MEDS ORDERED: Cepastat Lozenges 1 LOZ PO PRN (07:33)
[2021-01-06] MEDS ORDERED: Sodium Chloride 0.65% Nasal 44 ML BOT EA NARE PRN (07:33)
[2021-01-06] MEDS: Famotidine 20 MG TAB PO SCH ×2 (08:34→21:57)
[2021-01-06] MEDS: Apixaban 5 MG TAB PO SCH ×2 (08:34→21:57)
[2021-01-06] MEDS: DULoxetine 30 MG CAP PO SCH (08:34)
[2021-01-06] MEDS: guaiFENesin/DM ER PO SCH ×2 (08:35→21:57)
[2021-01-06] MEDS: Vancomycin 1 GM in Premix Bag 1 BAG IVPB SCH ×2 (08:35→21:56)
[2021-01-06] MEDS: Aspirin 81 mg Enteric Coated Tablet PO SCH (08:35)
[2021-01-06] MEDS: Dronedarone HCl 400 MG TAB PO SCH ×2 (08:38→17:41)
[2021-01-06] MEDS ORDERED: predniSONE 20 MG TAB PO SCH (08:45)
[2021-01-06] MEDS: cefTRIAXone\\ROCEPHIN 1 GM in Sodium Chloride 0.9% 100 ML IVPB SCH (08:47)
[2021-01-06] MEDS: HYDROcodone/Acetaminophen 5/325 mg Tablet PO PRN (15:27)
[2021-01-06 20:46] LABS: Vancomycin, Trough 13.1 ug/mL
[2021-01-07] MEDS: HYDROcodone/Acetaminophen 5/325 mg Tablet PO PRN ×2 (04:33→11:43)
[2021-01-07 05:07] LABS: #Lymphocytes 1.6 thou/uL (1.20-3.40); #Monocytes 1.2 thou/uL (0.11-0.59); #Neutrophils 14.1 thou/uL (1.40-6.50); %Eosinophils 0.1 % (0.0-10.0); %Lymphocytes 9.6 % (21.0-51.0); %Monocytes 7.2 % (0.0-10.0); Hemoglobin 9.4 g/dL (12.0-16.0); Mean Corpuscular HGB CONC 33.1 g/dL (32.0-36.0); Mean Corpuscular Hemoglobin 30.4 pg (27.0-31.0); Mean Corpuscular Volume 91.8 fL (78.0-98.0); Mean Platelet Volume 7.7 fL (7.4-10.4); Platelet Count 353 thou/uL (130-400); RBC Distribution Width 13.1 % (11.5-14.5)
[2021-01-07 05:31] LABS: ALT (SGPT) 14 U/L (8-55); AST (SGOT) 11 U/L (5-34); Alkaline Phosphatase 60 U/L (40-110); BUN (Urea Nitrogen) 19 mg/dL (9.8-20.1); Bilirubin, Total 0.7 mg/dL (0.2-1.2); Calc. Creatinine Clearance 91 mL/min (70-130); Calcium 8.5 mg/dL (7.8-10.44); Carbon Dioxide 33 mmol/L (23-31); Chloride 96 mmol/L (98-107); Globulin 2.8 g/dL (2.4-3.5); Glucose 103 mg/dL (83-110); Magnesium 2.3 mg/dL (1.6-2.6); Potassium 3.4 mmol/L (3.5-5.1); Protein, Total 5.8 g/dL (5.8-8.1); Sodium 136 mmol/L (136-145)
[2021-01-07 06:31] LABS: Anion Gap 10 mmol/L (10-20)
[2021-01-07] MEDS: predniSONE 20 MG TAB PO SCH (08:33)
[2021-01-07] MEDS: Famotidine 20 MG TAB PO SCH ×2 (08:33→21:36)
[2021-01-07] MEDS: Dronedarone HCl 400 MG TAB PO SCH ×2 (08:33→16:26)
[2021-01-07] MEDS: Apixaban 5 MG TAB PO SCH ×2 (08:35→21:36)
[2021-01-07] MEDS: DULoxetine 30 MG CAP PO SCH (08:35)
[2021-01-07] MEDS: Aspirin 81 mg Enteric Coated Tablet PO SCH (08:35)
[2021-01-07] MEDS: guaiFENesin/DM ER PO SCH ×2 (08:35→21:36)
[2021-01-07] MEDS: cefTRIAXone\\ROCEPHIN 1 GM in Sodium Chloride 0.9% 100 ML IVPB SCH (08:37)
[2021-01-07] MEDS: Vancomycin 1 GM in Premix Bag 1 BAG IVPB SCH ×3 (08:38→21:36)
[2021-01-07] MEDS: Furosemide 40 MG/4 ML VIAL SLOW IVP SCH (08:44)
[2021-01-07] MEDS ORDERED: Potassium Chloride 20 MEQ TAB PO SCH ×2 (08:45→17:00)
[2021-01-07] MEDS ORDERED: Nicotine 7 MG PATCH TD PRN (09:12)
[2021-01-07] MEDS: Mometasone 200 MCG/Formoterol 5 MCG 120 PUFF INHALER INH SCH (19:06)
[2021-01-07] MEDS: Melatonin 3 MG TAB PO SCH (21:36)
[2021-01-07] MEDS: traMADol HCl 50 MG TAB PO PRN (21:39)
[2021-01-08 04:59] LABS: #Lymphocytes 1.6 thou/uL (1.20-3.40); #Neutrophils 12.5 thou/uL (1.40-6.50); %Basophils 0.1 % (0.0-1.0); %Eosinophils 0.3 % (0.0-10.0); %Lymphocytes 10.7 % (21.0-51.0); %Monocytes 6.8 % (0.0-10.0); %Neutrophils 82.2 % (42.0-75.0); Hemoglobin 9.3 g/dL (12.0-16.0); Mean Corpuscular HGB CONC 32.7 g/dL (32.0-36.0); Mean Corpuscular Volume 91.6 fL (78.0-98.0); Mean Platelet Volume 7.5 fL (7.4-10.4); Platelet Count 394 thou/uL (130-400); RBC Distribution Width 13.2 % (11.5-14.5); Red Blood Cell (RBC) Count 3.09 mill/uL (4.20-5.40); White Blood Cell (WBC) Count 15.2 thou/uL (4.8-10.8)
[2021-01-08 05:21] LABS: Anion Gap 14 mmol/L (10-20); BUN (Urea Nitrogen) 18 mg/dL (9.8-20.1); Calc. Creatinine Clearance 93 mL/min (70-130); Calcium 8.4 mg/dL (7.8-10.44); Carbon Dioxide 30 mmol/L (23-31); Chloride 95 mmol/L (98-107); Glucose 115 mg/dL (83-110); Sodium 135 mmol/L (136-145)
[2021-01-08] MEDS: predniSONE 20 MG TAB PO SCH (06:41)
[2021-01-08] MEDS: Furosemide 40 MG/4 ML VIAL SLOW IVP SCH ×3 (06:41→20:44)
[2021-01-08] MEDS ORDERED: methylPREDNISolone Sod Succ 40 MG VIAL IVP SCH ×2 (06:51→09:00)
[2021-01-08] MEDS: Mometasone 200 MCG/Formoterol 5 MCG 120 PUFF INHALER INH SCH ×3 (07:20→09:00)
[2021-01-08 07:51] LABS: Base Excess (BEa) 9.8 mEq/L (-2.0 to +3.0); CO2 Tension 44.7 mmHg (35.0-45.0); Calcium, Ionized (arterial) 1.08 mmol/L (1.12-1.30); Carboxyhemoglobin (COHb) 0.1 gm% (0.0-3.0); Hemoglobin (Hb) 9.3 g/dL (12.0-16.0); O2 Tension (PaO2), arterial 273.2 mmHg (> 70.0); Potassium - ABG Lab 3.47 mmol/L (3.70-5.30)
[2021-01-08 07:55] LABS: ALV-art Gradient 383.925 mmHg (0-20); Puncture Site RA
[2021-01-08] MEDS ORDERED: Furosemide 40 MG/4 ML VIAL SLOW IVP SCH (08:10)
[2021-01-08] MEDS ORDERED: Cefepime 1 GM in Sodium Chloride 0.9% 100 ML IVPB SCH (09:00)
[2021-01-08] MEDS ORDERED: Fentanyl CADD 100 ML ONE (09:21)
[2021-01-08] MEDS ORDERED: Propofol 1,000 MG/100 ML VIAL IV ONE (09:22)
[2021-01-08] MEDS: Fentanyl CADD 100 ML IV SCH (09:28)
[2021-01-08] MEDS: Propofol 1,000 MG/100 ML VIAL IV PRN ×2 (09:28→16:08)
[2021-01-08] MEDS ORDERED: Morphine 2 MG/ML VIAL SLOW IVP PRN (09:30)
[2021-01-08] MEDS ORDERED: Fentanyl BOLUS 250 ML IVPB PRN (09:30)
[2021-01-08] MEDS ORDERED: Propofol BOLUS 1,000 MG/100 ML VIAL IV PRN (09:30)
[2021-01-08] MEDS ORDERED: DISCONTINUE PREVIOUS NARCOTIC PAIN MEDICATIONS AND BENZODIAZEPINES FS SCH (09:30)
[2021-01-08] MEDS ORDERED: Midazolam HCl 2 mg/2 ml Vial SLOW IVP SCH (09:30)
[2021-01-08] MEDS ORDERED: Vecuronium 10 MG VIAL ONE (09:40)
[2021-01-08] MEDS: Vecuronium 10 MG VIAL IV SCH ×2 (09:50→12:33)
[2021-01-08 10:19] LABS: Vancomycin, Trough 14.7 ug/mL
[2021-01-08 10:34] LABS: Base Excess (BEa) 9.5 mEq/L (-2.0 to +3.0); CO2 Tension 40.3 mmHg (35.0-45.0); Calcium, Ionized (arterial) 1.02 mmol/L (1.12-1.30); Carboxyhemoglobin (COHb) 0.8 gm% (0.0-3.0); Hemoglobin (Hb) 8.6 g/dL (12.0-16.0); O2 Tension (PaO2), arterial 66.3 mmHg (> 70.0); Potassium - ABG Lab 3.37 mmol/L (3.70-5.30); pH, Arterial 7.53 (7.35-7.45)
[2021-01-08 10:36] LABS: Puncture Site RRA
[2021-01-08 10:37] LABS: ALV-art Gradient 168.525 mmHg (0-20)
[2021-01-08 11:05] LABS: Hemosiderin - Iron Stain Req REQUEST RECEIVED
[2021-01-08] MEDS: Dronedarone HCl 400 MG TAB PO SCH ×2 (11:08→18:17)
[2021-01-08] MEDS: Apixaban 5 MG TAB PO SCH (11:08)
[2021-01-08] MEDS: guaiFENesin/DM ER PO SCH ×2 (11:09→20:44)
[2021-01-08] MEDS: Ezetimibe 10 MG TAB PO SCH (11:09)
[2021-01-08] MEDS: Aspirin 81 mg Enteric Coated Tablet PO SCH (11:09)
[2021-01-08] MEDS: Famotidine 20 MG TAB PO SCH ×2 (11:09→20:44)
[2021-01-08] MEDS: DULoxetine 30 MG CAP PO SCH (11:09)
[2021-01-08] MEDS: Vancomycin 1 GM in Premix Bag 1 BAG IVPB SCH (11:10)
[2021-01-08] MEDS: Saccharomyces boulardii 250 MG CAP PO SCH (11:10)
[2021-01-08] MEDS ORDERED: Rocuronium Bromide 10 MG/ML (10ML VIAL) ONE (11:23)
[2021-01-08] MEDS: Lorazepam 2 MG/ML VIAL SLOW IVP PRN ×2 (11:27→12:32)
[2021-01-08] MEDS: Vancomycin HCl 750 MG in Sodium Chloride 0.9% 250 ML 250 ML IVPB SCH ×2 (12:24→19:58)
[2021-01-08] MEDS ORDERED: Rocuronium Bromide 10 MG/ML (10ML VIAL) IVP PRN (12:37)
[2021-01-08] MEDS: methylPREDNISolone Sod Succ 40 MG VIAL IVP SCH (18:17)
[2021-01-08] MEDS: Cefepime 2 GM in Sodium Chloride 0.9% 100 ML IVPB SCH (18:22)
[2021-01-08] MEDS: Melatonin 3 MG TAB PO SCH (20:44)
[2021-01-09] MEDS: methylPREDNISolone Sod Succ 40 MG VIAL IVP SCH ×4 (00:07→17:11)
[2021-01-09] MEDS: Propofol 1,000 MG/100 ML VIAL IV PRN (00:07)
[2021-01-09] MEDS: Cefepime 2 GM in Sodium Chloride 0.9% 100 ML IVPB SCH ×3 (02:58→18:02)
[2021-01-09] MEDS: Vancomycin HCl 750 MG in Sodium Chloride 0.9% 250 ML 250 ML IVPB SCH ×3 (03:46→19:06)
[2021-01-09 05:20] LABS: ALT (SGPT) 10 U/L (8-55); AST (SGOT) 9 U/L (5-34); Albumin 2.7 g/dL (3.4-4.8); Alkaline Phosphatase 54 U/L (40-110); Anion Gap 16 mmol/L (10-20); BUN (Urea Nitrogen) 22 mg/dL (9.8-20.1); Bilirubin, Total 0.9 mg/dL (0.2-1.2); Calc. Creatinine Clearance 82 mL/min (70-130); Calcium 7.9 mg/dL (7.8-10.44); Carbon Dioxide 33 mmol/L (23-31); Chloride 96 mmol/L (98-107); Globulin 2.5 g/dL (2.4-3.5); Glucose 148 mg/dL (83-110); Potassium 3.6 mmol/L (3.5-5.1); Protein, Total 5.2 g/dL (5.8-8.1); Sodium 141 mmol/L (136-145)
[2021-01-09 05:21] LABS: Band 6 % (5-11); Hemoglobin 7.5 g/dL (12.0-16.0); Lymphocytes 10 % (21-51); MDiff Complete? YES; Mean Corpuscular Hemoglobin 29.7 pg (27.0-31.0); Mean Corpuscular Volume 92.8 fL (78.0-98.0); Mean Platelet Volume 8.1 fL (7.4-10.4); Monocytes 1 % (0-10); Neutrophil 83 % (42-75); Platelet Count 259 thou/uL (130-400); Platelet Morphology Comment Appears Adequate; Polychromasia SLIGHT = 2-3 cells (100X) (0-2/hpf); RBC Distribution Width 13.3 % (11.5-14.5); Red Blood Cell (RBC) Count 2.51 mill/uL (4.20-5.40); Small Platelets SLIGHT; White Blood Cell (WBC) Count 8.1 thou/uL (4.8-10.8)
[2021-01-09] MEDS ORDERED: Fentanyl CADD 100 ML ONE (06:41)
[2021-01-09] MEDS: Fentanyl CADD 100 ML IV SCH (06:47)
[2021-01-09 07:38] LABS: Actual Bicarbonate (HCO3a) 31.4 mEq/L (22-28); Base Excess (BEa) 8.3 mEq/L (-2.0 to +3.0); CO2 Tension 36.4 mmHg (35.0-45.0); Calcium, Ionized (arterial) 1.01 mmol/L (1.12-1.30); Carboxyhemoglobin (COHb) 0.6 gm% (0.0-3.0); Hemoglobin (Hb) 6.9 g/dL (12.0-16.0); Potassium - ABG Lab 3.24 mmol/L (3.70-5.30)
[2021-01-09 07:43] LABS: Puncture Site LRA; pH, Arterial 7.55 (7.35-7.45)
[2021-01-09] MEDS: Dronedarone HCl 400 MG TAB PO SCH ×2 (08:50→17:11)
[2021-01-09] MEDS: Furosemide 40 MG/4 ML VIAL SLOW IVP SCH ×2 (08:51→21:20)
[2021-01-09] MEDS: Saccharomyces boulardii 250 MG CAP PO SCH (08:51)
[2021-01-09] MEDS: Ezetimibe 10 MG TAB PO SCH (08:51)
[2021-01-09] MEDS: Aspirin 81 mg Enteric Coated Tablet PO SCH (08:51)
[2021-01-09] MEDS: Famotidine 20 MG TAB PO SCH ×2 (08:51→21:21)
[2021-01-09] MEDS: guaiFENesin/DM ER PO SCH ×2 (08:51→21:21)
[2021-01-09] MEDS: DULoxetine 30 MG CAP PO SCH (08:55)
[2021-01-09 10:23] LABS: Vancomycin, Trough 21.7 ug/mL
[2021-01-09 18:15] LABS: Vancomycin, Trough 24.4 ug/mL
[2021-01-09] MEDS: Melatonin 3 MG TAB PO SCH (21:21)
[2021-01-10] MEDS: methylPREDNISolone Sod Succ 40 MG VIAL IVP SCH ×5 (00:14→23:00)
[2021-01-10] MEDS ORDERED: Fentanyl CADD 100 ML ONE (02:58)
[2021-01-10] MEDS: Fentanyl CADD 100 ML IV SCH (03:03)
[2021-01-10] MEDS: Acetaminophen 325 MG TAB PO PRN ×2 (03:04→20:54)
[2021-01-10] MEDS: Cefepime 2 GM in Sodium Chloride 0.9% 100 ML IVPB SCH ×3 (03:12→20:53)
[2021-01-10 05:04] LABS: ALT (SGPT) 8 U/L (8-55); AST (SGOT) 8 U/L (5-34); Albumin 2.8 g/dL (3.4-4.8); Alkaline Phosphatase 52 U/L (40-110); Anion Gap 13 mmol/L (10-20); BUN (Urea Nitrogen) 30 mg/dL (9.8-20.1); Calc. Creatinine Clearance 72 mL/min (70-130); Calcium 7.9 mg/dL (7.8-10.44); Carbon Dioxide 32 mmol/L (23-31); Chloride 96 mmol/L (98-107); Globulin 2.6 g/dL (2.4-3.5); Glucose 190 mg/dL (83-110); Potassium 3.2 mmol/L (3.5-5.1); Protein, Total 5.4 g/dL (5.8-8.1); Sodium 138 mmol/L (136-145)
[2021-01-10 05:16] LABS: Band 3 % (5-11); Hemoglobin 9.9 g/dL (12.0-16.0); Lymphocytes 4 % (21-51); MDiff Complete? YES; Mean Corpuscular HGB CONC 33.9 g/dL (32.0-36.0); Mean Corpuscular Hemoglobin 30.3 pg (27.0-31.0); Mean Corpuscular Volume 89.3 fL (78.0-98.0); Metamyelocyte 1 % (0-0); Monocytes 3 % (0-10); Neutrophil 89 % (42-75); Platelet Count 269 thou/uL (130-400); Platelet Morphology Comment Appears Adequate; RBC Distribution Width 16.2 % (11.5-14.5); Red Blood Cell (RBC) Count 3.28 mill/uL (4.20-5.40); White Blood Cell (WBC) Count 12.1 thou/uL (4.8-10.8)
[2021-01-10 07:44] LABS: Actual Bicarbonate (HCO3a) 30.2 mEq/L (22-28); Base Excess (BEa) 5.8 mEq/L (-2.0 to +3.0); CO2 Tension 42.8 mmHg (35.0-45.0); Calcium, Ionized (arterial) 1.08 mmol/L (1.12-1.30); Carboxyhemoglobin (COHb) 1.3 gm% (0.0-3.0); Hemoglobin (Hb) 12.8 g/dL (12.0-16.0); O2 Tension (PaO2), arterial 88.4 mmHg (> 70.0); Potassium - ABG Lab 3.37 mmol/L (3.70-5.30); pH, Arterial 7.47 (7.35-7.45)
[2021-01-10 07:59] LABS: Puncture Site LRA
[2021-01-10] MEDS: Vancomycin 1 GM in Premix Bag 1 BAG IVPB SCH ×2 (09:32→20:55)
[2021-01-10] MEDS: Furosemide 40 MG/4 ML VIAL SLOW IVP SCH ×2 (09:33→20:55)
[2021-01-10] MEDS: Famotidine 20 MG TAB PO SCH ×2 (09:33→20:53)
[2021-01-10] MEDS: Saccharomyces boulardii 250 MG CAP PO SCH (09:33)
[2021-01-10] MEDS: Aspirin 81 mg Enteric Coated Tablet PO SCH (09:33)
[2021-01-10] MEDS: Ezetimibe 10 MG TAB PO SCH (09:33)
[2021-01-10] MEDS: Dronedarone HCl 400 MG TAB PO SCH ×2 (09:39→16:25)
[2021-01-10] MEDS: guaiFENesin/DM ER PO SCH ×2 (09:39→20:54)
[2021-01-10] MEDS: DULoxetine 30 MG CAP PO SCH (09:39)
[2021-01-10] MEDS: Melatonin 3 MG TAB PO SCH (20:54)
[2021-01-11] MEDS: Cefepime 2 GM in Sodium Chloride 0.9% 100 ML IVPB SCH ×3 (03:32→17:10)
[2021-01-11] MEDS: methylPREDNISolone Sod Succ 40 MG VIAL IVP SCH (05:19)
[2021-01-11 05:51] LABS: Anisocytosis SLIGHT = 6-15 cells (100X) (0-5/hpf); Band 3 % (5-11); Hemoglobin 10.8 g/dL (12.0-16.0); Lymphocytes 7 % (21-51); MDiff Complete? YES; Mean Corpuscular HGB CONC 31.8 g/dL (32.0-36.0); Mean Corpuscular Hemoglobin 28.6 pg (27.0-31.0); Mean Corpuscular Volume 89.9 fL (78.0-98.0); Mean Platelet Volume 7.6 fL (7.4-10.4); Monocytes 3 % (0-10); Neutrophil 87 % (42-75); Ovalocytes SLIGHT = 2-5 cells (100X) (0-1/hpf); Platelet Count 311 thou/uL (130-400); Platelet Morphology Comment Appears Adequate; RBC Distribution Width 15.8 % (11.5-14.5); Red Blood Cell (RBC) Count 3.77 mill/uL (4.20-5.40); White Blood Cell (WBC) Count 18.1 thou/uL (4.8-10.8)
[2021-01-11 05:54] LABS: ALT (SGPT) 10 U/L (8-55); AST (SGOT) 15 U/L (5-34); Albumin 2.8 g/dL (3.4-4.8); Alkaline Phosphatase 51 U/L (40-110); Anion Gap 12 mmol/L (10-20); BUN (Urea Nitrogen) 39 mg/dL (9.8-20.1); Bilirubin, Total 1.3 mg/dL (0.2-1.2); Calc. Creatinine Clearance 76 mL/min (70-130); Calcium 8.5 mg/dL (7.8-10.44); Carbon Dioxide 35 mmol/L (23-31); Chloride 97 mmol/L (98-107); Globulin 2.7 g/dL (2.4-3.5); Glucose 125 mg/dL (83-110); Magnesium 2.1 mg/dL (1.6-2.6); Potassium 3.3 mmol/L (3.5-5.1); Protein, Total 5.5 g/dL (5.8-8.1); Sodium 141 mmol/L (136-145)
[2021-01-11] MEDS ORDERED: Propofol 1,000 MG/100 ML VIAL IV ONE (06:11)
[2021-01-11] MEDS ORDERED: PROPOFOL 200 MG/20 ML VIAL IVP SCH (06:45)
[2021-01-11] MEDS ORDERED: Fentanyl BOLUS 250 ML IVPB PRN (06:45)
[2021-01-11] MEDS ORDERED: Morphine 2 MG/ML VIAL SLOW IVP PRN (06:45)
[2021-01-11] MEDS ORDERED: Propofol BOLUS 1,000 MG/100 ML VIAL IV PRN (06:45)
[2021-01-11] MEDS ORDERED: DISCONTINUE PREVIOUS NARCOTIC PAIN MEDICATIONS AND BENZODIAZEPINES FS SCH (06:45)
[2021-01-11] MEDS ORDERED: Rocuronium Bromide 50 MG/5 ML VIAL IVP SCH (06:45)
[2021-01-11] MEDS: Lorazepam 2 MG/ML VIAL SLOW IVP PRN (07:44)
[2021-01-11 07:46] LABS: Actual Bicarbonate (HCO3a) 32.5 mEq/L (22-28); Base Excess (BEa) 5.2 mEq/L (-2.0 to +3.0); Calcium, Ionized (arterial) 1.12 mmol/L (1.12-1.30); Carboxyhemoglobin (COHb) 0.7 gm% (0.0-3.0); O2 Tension (PaO2), arterial 64.3 mmHg (> 70.0); pH, Arterial 7.34 (7.35-7.45)
[2021-01-11 07:49] LABS: CO2 Tension 61.8 mmHg (35.0-45.0); Puncture Site LRA
[2021-01-11] MEDS: Saccharomyces boulardii 250 MG CAP PO SCH (07:49)
[2021-01-11] MEDS: Famotidine 20 MG TAB PO SCH ×2 (07:49→20:08)
[2021-01-11] MEDS: Aspirin 81 mg Enteric Coated Tablet PO SCH (07:49)
[2021-01-11] MEDS: DULoxetine 30 MG CAP PO SCH (07:49)
[2021-01-11] MEDS: Furosemide 40 MG/4 ML VIAL SLOW IVP SCH ×2 (07:49→20:07)
[2021-01-11] MEDS: guaiFENesin/DM ER PO SCH ×2 (07:50→20:07)
[2021-01-11] MEDS: Vancomycin 1 GM in Premix Bag 1 BAG IVPB SCH (07:50)
[2021-01-11] MEDS: Dronedarone HCl 400 MG TAB PO SCH ×2 (07:50→17:10)
[2021-01-11] MEDS: Ezetimibe 10 MG TAB PO SCH (07:50)
[2021-01-11] MEDS ORDERED: Dextrose 50% Abboject 50 ML SYRINGE SLOW IVP PRN (08:24)
[2021-01-11] MEDS ORDERED: Dextrose 5% in Water 1,000 ML IV PRN (08:24)
[2021-01-11] MEDS ORDERED: Fentanyl CADD 100 ML ONE (08:35)
[2021-01-11] MEDS: Fentanyl CADD 100 ML IV SCH (08:40)
[2021-01-11] MEDS: methylPREDNISolone Sod Succ/PF 125 MG/2 ML VIAL IVP SCH ×2 (08:41→20:09)
[2021-01-11 16:52] LABS: ANA Symphony (Qualitative) Negative (Negative); ANA Symphony (Quantitative) 0.2 Ratio (< 0.7 Negative); dsDNA IgG Antibody 0.9 IU/mL (<10 Negative)
[2021-01-11] MEDS: Acetaminophen 325 MG TAB PO PRN (20:08)
[2021-01-11] MEDS: Melatonin 3 MG TAB PO SCH (20:14)
[2021-01-12] MEDS: Cefepime 2 GM in Sodium Chloride 0.9% 100 ML IVPB SCH ×3 (02:07→21:33)
[2021-01-12 04:21] LABS: Hemoglobin 9.3 g/dL (12.0-16.0); Hypochromia SLIGHT = 6-15 cells (100X) (0-5/hpf); Lymphocytes 8 % (21-51); MDiff Complete? YES; Mean Corpuscular Hemoglobin 29.8 pg (27.0-31.0); Mean Corpuscular Volume 90.3 fL (78.0-98.0); Monocytes 9 % (0-10); Neutrophil 83 % (42-75); Platelet Count 226 thou/uL (130-400); Platelet Morphology Comment Appears Adequate; RBC Distribution Width 15.6 % (11.5-14.5); Red Blood Cell (RBC) Count 3.13 mill/uL (4.20-5.40); White Blood Cell (WBC) Count 9.3 thou/uL (4.8-10.8)
[2021-01-12 04:28] LABS: Anion Gap 16 mmol/L (10-20); BUN (Urea Nitrogen) 57 mg/dL (9.8-20.1); Calc. Creatinine Clearance 63 mL/min (70-130); Carbon Dioxide 29 mmol/L (23-31); Chloride 98 mmol/L (98-107); Glucose 178 mg/dL (83-110); Potassium 3.4 mmol/L (3.5-5.1); Sodium 140 mmol/L (136-145)
[2021-01-12] MEDS ORDERED: Fentanyl CADD 100 ML ONE (04:46)
[2021-01-12] MEDS: Fentanyl CADD 100 ML IV SCH (04:53)
[2021-01-12 07:28] LABS: Base Excess (BEa) 12.2 mEq/L (-2.0 to +3.0); CO2 Tension 43.5 mmHg (35.0-45.0); Calcium, Ionized (arterial) 1.08 mmol/L (1.12-1.30); Carboxyhemoglobin (COHb) 0.4 gm% (0.0-3.0); Hemoglobin (Hb) 9.4 g/dL (12.0-16.0); O2 Tension (PaO2), arterial 86.5 mmHg (> 70.0); pH, Arterial 7.54 (7.35-7.45)
[2021-01-12 07:31] LABS: ALV-art Gradient 215.625 mmHg (0-20)
[2021-01-12] MEDS: Ezetimibe 10 MG TAB PO SCH (07:34)
[2021-01-12] MEDS: Aspirin 81 mg Enteric Coated Tablet PO SCH (07:34)
[2021-01-12] MEDS: Furosemide 40 MG/4 ML VIAL SLOW IVP SCH ×2 (07:34→21:34)
[2021-01-12] MEDS: Famotidine 20 MG TAB PO SCH ×2 (07:34→21:34)
[2021-01-12] MEDS: DULoxetine 30 MG CAP PO SCH (07:34)
[2021-01-12] MEDS: methylPREDNISolone Sod Succ/PF 125 MG/2 ML VIAL IVP SCH ×2 (07:35→21:35)
[2021-01-12] MEDS: Dronedarone HCl 400 MG TAB PO SCH ×2 (07:35→16:41)
[2021-01-12] MEDS: guaiFENesin/DM ER PO SCH ×2 (07:35→21:50)
[2021-01-12] MEDS: Saccharomyces boulardii 250 MG CAP PO SCH (07:35)
[2021-01-12] MEDS ORDERED: Electrolyte Replacement Protocol FS PRN (09:00)
[2021-01-12] MEDS ORDERED: Potassium Bicarbonate/Cit Ac 20 MEQ TAB PER TUBE SCH (09:00)
[2021-01-12] MEDS: Propofol 1,000 MG/100 ML VIAL IV PRN (10:53)
[2021-01-12] MEDS: Polyethylene Glycol 3350 17 GM Packet PER TUBE SCH (10:54)
[2021-01-12 11:37] LABS: Fungus Stain Final report (.)
[2021-01-12 14:10] LABS: Potassium 3.7 mmol/L (3.5-5.1)
[2021-01-12] MEDS: Melatonin 3 MG TAB PO SCH (21:34)
[2021-01-13] MEDS ORDERED: Fentanyl CADD 100 ML ONE ×2 (00:01→22:23)
[2021-01-13] MEDS: Fentanyl CADD 100 ML IV SCH (00:17)
[2021-01-13] MEDS: Cefepime 2 GM in Sodium Chloride 0.9% 100 ML IVPB SCH ×2 (04:13→16:22)
[2021-01-13 05:27] LABS: Anion Gap 14 mmol/L (10-20); BUN (Urea Nitrogen) 75 mg/dL (9.8-20.1); Calc. Creatinine Clearance 52 mL/min (70-130); Calcium 8.2 mg/dL (7.8-10.44); Carbon Dioxide 34 mmol/L (23-31); Chloride 99 mmol/L (98-107); Glucose 209 mg/dL (83-110); Potassium 3.9 mmol/L (3.5-5.1); Sodium 143 mmol/L (136-145)
[2021-01-13 05:59] LABS: Band 1 % (5-11); Hemoglobin 8.9 g/dL (12.0-16.0); Lymphocytes 4 % (21-51); MDiff Complete? YES; Mean Corpuscular HGB CONC 33.4 g/dL (32.0-36.0); Mean Corpuscular Hemoglobin 29.9 pg (27.0-31.0); Mean Corpuscular Volume 89.5 fL (78.0-98.0); Mean Platelet Volume 7.6 fL (7.4-10.4); Monocytes 4 % (0-10); Neutrophil 91 % (42-75); Platelet Count 246 thou/uL (130-400); Platelet Morphology Comment Appears Adequate; RBC Distribution Width 15.2 % (11.5-14.5); RBC Morphology Normal; Red Blood Cell (RBC) Count 2.97 mill/uL (4.20-5.40); White Blood Cell (WBC) Count 9.7 thou/uL (4.8-10.8)
[2021-01-13 07:38] LABS: Actual Bicarbonate (HCO3a) 34.2 mEq/L (22-28); Base Excess (BEa) 9.7 mEq/L (-2.0 to +3.0); CO2 Tension 45.8 mmHg (35.0-45.0); Calcium, Ionized (arterial) 1.07 mmol/L (1.12-1.30); Carboxyhemoglobin (COHb) 1.2 gm% (0.0-3.0); Hemoglobin (Hb) 11.9 g/dL (12.0-16.0); O2 Tension (PaO2), arterial 101.8 mmHg (> 70.0); Potassium - ABG Lab 3.75 mmol/L (3.70-5.30); pH, Arterial 7.49 (7.35-7.45)
[2021-01-13 07:43] LABS: Puncture Site LRA
[2021-01-13] MEDS: guaiFENesin/DM ER PO SCH ×2 (07:58→20:57)
[2021-01-13] MEDS: Saccharomyces boulardii 250 MG CAP PO SCH (07:58)
[2021-01-13] MEDS: Ezetimibe 10 MG TAB PO SCH (07:58)
[2021-01-13] MEDS: Famotidine 20 MG TAB PO SCH ×2 (07:58→20:36)
[2021-01-13] MEDS: Aspirin 81 mg Enteric Coated Tablet PO SCH (07:58)
[2021-01-13] MEDS: DULoxetine 30 MG CAP PO SCH (07:58)
[2021-01-13] MEDS: Dronedarone HCl 400 MG TAB PO SCH ×2 (07:58→16:22)
[2021-01-13] MEDS: Polyethylene Glycol 3350 17 GM Packet PER TUBE SCH (07:58)
[2021-01-13] MEDS: methylPREDNISolone Sod Succ/PF 125 MG/2 ML VIAL IVP SCH ×2 (07:59→20:38)
[2021-01-13 10:54] LABS: Cell Block/Cytology Request REQUEST RECEIVED
[2021-01-13 12:39] LABS: SARS-CoV-2 PCR by NAA Not Detected (NotDetected)
[2021-01-13] MEDS: Propofol 1,000 MG/100 ML VIAL IV PRN (14:49)
[2021-01-13] MEDS: Melatonin 3 MG TAB PO SCH (20:37)
[2021-01-14] MEDS ORDERED: Fentanyl CADD 0 ML ONE (04:32)
[2021-01-14] MEDS: Cefepime 2 GM in Sodium Chloride 0.9% 100 ML IVPB SCH ×2 (04:55→17:56)
[2021-01-14 05:06] LABS: Hemoglobin 8.6 g/dL (12.0-16.0); Hypochromia SLIGHT = 6-15 cells (100X) (0-5/hpf); Lymphocytes 11 % (21-51); MDiff Complete? YES; Mean Corpuscular HGB CONC 33.2 g/dL (32.0-36.0); Mean Corpuscular Hemoglobin 29.9 pg (27.0-31.0); Mean Corpuscular Volume 89.9 fL (78.0-98.0); Monocytes 5 % (0-10); Neutrophil 84 % (42-75); Platelet Count 242 thou/uL (130-400); Platelet Morphology Comment Appears Adequate; RBC Distribution Width 15.2 % (11.5-14.5); Red Blood Cell (RBC) Count 2.86 mill/uL (4.20-5.40); White Blood Cell (WBC) Count 10.8 thou/uL (4.8-10.8)
[2021-01-14 06:10] LABS: Chloride 101 mmol/L (98-107); Potassium 4.2 mmol/L (3.5-5.1); Sodium 144 mmol/L (136-145)
[2021-01-14 06:11] LABS: Calcium 8.3 mg/dL (7.8-10.44); Glucose 246 mg/dL (83-110)
[2021-01-14 06:13] LABS: Anion Gap 13 mmol/L (10-20); Carbon Dioxide 34 mmol/L (23-31)
[2021-01-14 06:14] LABS: Calc. Creatinine Clearance 47 mL/min (70-130)
[2021-01-14 06:15] LABS: BUN (Urea Nitrogen) 97 mg/dL (9.8-20.1)
[2021-01-14 07:13] LABS: Actual Bicarbonate (HCO3a) 31.7 mEq/L (22-28); Base Excess (BEa) 8.5 mEq/L (-2.0 to +3.0); CO2 Tension 38.5 mmHg (35.0-45.0); Calcium, Ionized (arterial) 1.11 mmol/L (1.12-1.30); Carboxyhemoglobin (COHb) 0.2 gm% (0.0-3.0); Hemoglobin (Hb) 9.6 g/dL (12.0-16.0); O2 Tension (PaO2), arterial 86.4 mmHg (> 70.0); Potassium - ABG Lab 3.98 mmol/L (3.70-5.30); pH, Arterial 7.53 (7.35-7.45)
[2021-01-14 07:14] LABS: ALV-art Gradient 293.275 mmHg (0-20); Puncture Site LRA
[2021-01-14] MEDS: Aspirin 81 mg Enteric Coated Tablet PO SCH (09:39)
[2021-01-14] MEDS: Saccharomyces boulardii 250 MG CAP PO SCH (09:40)
[2021-01-14] MEDS: Famotidine 20 MG TAB PO SCH (09:40)
[2021-01-14] MEDS: Dronedarone HCl 400 MG TAB PO SCH ×2 (09:40→17:56)
[2021-01-14] MEDS: Polyethylene Glycol 3350 17 GM Packet PER TUBE SCH (09:40)
[2021-01-14] MEDS: Ezetimibe 10 MG TAB PO SCH (09:40)
[2021-01-14] MEDS: DULoxetine 30 MG CAP PO SCH (09:40)
[2021-01-14] MEDS: guaiFENesin/DM ER PO SCH (09:41)
[2021-01-14] MEDS: Insulin Regular 300 UNITS/3 ML VIAL SC PRN ×2 (10:02→20:53)
[2021-01-14] MEDS ORDERED: Fentanyl CADD 100 ML ONE (10:56)
[2021-01-14] MEDS: methylPREDNISolone Sod Succ 40 MG VIAL IVP SCH ×2 (12:12→17:57)
[2021-01-14] MEDS: Propofol 1,000 MG/100 ML VIAL IV PRN (18:30)
[2021-01-14] MEDS: Melatonin 3 MG TAB PO SCH (20:52)
[2021-01-14] MEDS: NPH, Human Insulin Isophane 300 UNIT/3 ML VIAL SC SCH (20:54)
[2021-01-15] MEDS: Lorazepam 2 MG/ML VIAL SLOW IVP PRN ×3 (00:27→18:23)
[2021-01-15] MEDS: methylPREDNISolone Sod Succ 40 MG VIAL IVP SCH ×4 (00:27→17:48)
[2021-01-15 05:00] LABS: BUN (Urea Nitrogen) 89 mg/dL (9.8-20.1); Calc. Creatinine Clearance 41 mL/min (70-130); Calcium 8.3 mg/dL (7.8-10.44); Carbon Dioxide 32 mmol/L (23-31); Chloride 104 mmol/L (98-107); Glucose 223 mg/dL (83-110); Potassium 4.2 mmol/L (3.5-5.1); Sodium 146 mmol/L (136-145)
[2021-01-15] MEDS: Propofol 1,000 MG/100 ML VIAL IV PRN ×2 (05:06→15:38)
[2021-01-15 05:08] LABS: Anion Gap 12 mmol/L (10-20)
[2021-01-15] MEDS: Insulin Regular 300 UNITS/3 ML VIAL SC PRN ×3 (05:08→17:49)
[2021-01-15 05:47] LABS: Hypochromia SLIGHT = 6-15 cells (100X) (0-5/hpf); Lymphocytes 5 % (21-51); MDiff Complete? YES; Mean Corpuscular HGB CONC 31.5 g/dL (32.0-36.0); Mean Corpuscular Volume 88.9 fL (78.0-98.0); Mean Platelet Volume 8.4 fL (7.4-10.4); Monocytes 4 % (0-10); Neutrophil 91 % (42-75); Ovalocytes SLIGHT = 2-5 cells (100X) (0-1/hpf); Platelet Count 245 thou/uL (130-400); Platelet Morphology Comment Appears Adequate; RBC Distribution Width 15.2 % (11.5-14.5); Red Blood Cell (RBC) Count 2.85 mill/uL (4.20-5.40); White Blood Cell (WBC) Count 8.6 thou/uL (4.8-10.8)
[2021-01-15 06:41] LABS: Actual Bicarbonate (HCO3a) 31.2 mEq/L (22-28); Base Excess (BEa) 9.5 mEq/L (-2.0 to +3.0); CO2 Tension 31.3 mmHg (35.0-45.0); Calcium, Ionized (arterial) 1.12 mmol/L (1.12-1.30); Carboxyhemoglobin (COHb) 0.2 gm% (0.0-3.0); Hemoglobin (Hb) 8.9 g/dL (12.0-16.0); O2 Tension (PaO2), arterial 87.4 mmHg (> 70.0); Potassium - ABG Lab 4.15 mmol/L (3.70-5.30)
[2021-01-15 06:43] LABS: ALV-art Gradient 158.675 mmHg (0-20); Puncture Site RRA; pH, Arterial 7.62 (7.35-7.45)
[2021-01-15] MEDS: Dronedarone HCl 400 MG TAB PO SCH ×2 (09:06→17:48)
[2021-01-15] MEDS: Ezetimibe 10 MG TAB PO SCH (09:06)
[2021-01-15] MEDS: Polyethylene Glycol 3350 17 GM Packet PER TUBE SCH (09:07)
[2021-01-15] MEDS: Aspirin 81 mg Enteric Coated Tablet PO SCH (09:07)
[2021-01-15] MEDS: Saccharomyces boulardii 250 MG CAP PO SCH (09:07)
[2021-01-15] MEDS: NPH, Human Insulin Isophane 300 UNIT/3 ML VIAL SC SCH ×2 (09:07→21:50)
[2021-01-15] MEDS: Famotidine 20 MG TAB PO SCH (09:07)
[2021-01-15] MEDS: DULoxetine 30 MG CAP PO SCH (09:07)
[2021-01-15] MEDS: Acetaminophen 325 MG TAB PO PRN (09:29)
[2021-01-15 10:40] LABS: Cytoplasmic (C-ANCA) <1:20 titer (Neg:<1:20); Myeloperoxidase AutoAbs <9.0 U/mL (0.0-9.0); Perinuclear (P-ANCA) <1:20 titer (Neg:<1:20); Proteinase-3 AutoAbs Less than 3.5 U/mL (0.0-3.5)
[2021-01-15] MEDS ORDERED: MEROPENEM 1 GM/50 ML 1 GM in Premix Bag 1 BAG IVPB SCH ×2 (12:30→22:00)
[2021-01-15] MEDS: Micafungin 100 MG in Sodium Chloride 0.9% 100 ML IVPB SCH (13:21)
[2021-01-15] MEDS ORDERED: Meropenem 2 GM in Admixture Fee 1 EACH IVPB SCH (14:00)
[2021-01-15] MEDS: Morphine 4 MG/ML VIAL SLOW IVP PRN (15:47)
[2021-01-15] MEDS: Digoxin 0.5 MG/2 ML AMP SLOW IVP SCH ×2 (16:28→18:23)
[2021-01-15] MEDS: Diltiazem 125 MG in Sodium Chloride 0.9% 100 ML IVPB SCH (18:27)
[2021-01-15] MEDS ORDERED: Sodium Chloride 0.9% 500 ML IV SCH (20:30)
[2021-01-15] MEDS: Melatonin 3 MG TAB PO SCH (21:49)
[2021-01-15] MEDS: Meropenem 1 GM in Sodium Chloride 0.9% 100 ML IVPB SCH (21:49)
[2021-01-16] MEDS: Insulin Regular 300 UNITS/3 ML VIAL SC PRN ×4 (00:20→18:19)
[2021-01-16] MEDS: methylPREDNISolone Sod Succ 40 MG VIAL IVP SCH ×4 (00:21→18:20)
[2021-01-16 04:56] LABS: Anion Gap 13 mmol/L (10-20); Calcium 8.3 mg/dL (7.8-10.44); Carbon Dioxide 34 mmol/L (23-31); Chloride 105 mmol/L (98-107); Potassium 4.3 mmol/L (3.5-5.1); Sodium 148 mmol/L (136-145)
[2021-01-16 05:02] LABS: Glucose 236 mg/dL (83-110)
[2021-01-16 05:05] LABS: Calc. Creatinine Clearance 38 mL/min (70-130)
[2021-01-16 05:06] LABS: BUN (Urea Nitrogen) 108 mg/dL (9.8-20.1)
[2021-01-16] MEDS: Diltiazem 125 MG in Sodium Chloride 0.9% 100 ML IVPB SCH (05:53)
[2021-01-16 06:38] LABS: Band 8 % (5-11); Hemoglobin 8.5 g/dL (12.0-16.0); Lymphocytes 14 % (21-51); MDiff Complete? YES; Mean Corpuscular HGB CONC 32.6 g/dL (32.0-36.0); Mean Corpuscular Hemoglobin 29.7 pg (27.0-31.0); Mean Corpuscular Volume 91.2 fL (78.0-98.0); Mean Platelet Volume 8.5 fL (7.4-10.4); Monocytes 2 % (0-10); Neutrophil 76 % (42-75); Platelet Count 225 thou/uL (130-400); RBC Distribution Width 15.1 % (11.5-14.5); Red Blood Cell (RBC) Count 2.86 mill/uL (4.20-5.40); White Blood Cell (WBC) Count 8.8 thou/uL (4.8-10.8)
[2021-01-16 08:03] LABS: Actual Bicarbonate (HCO3a) 34.6 mEq/L (22-28); Base Excess (BEa) 9.8 mEq/L (-2.0 to +3.0); CO2 Tension 49.1 mmHg (35.0-45.0); Calcium, Ionized (arterial) 1.09 mmol/L (1.12-1.30); Carboxyhemoglobin (COHb) 0.6 gm% (0.0-3.0); O2 Tension (PaO2), arterial 102.5 mmHg (> 70.0); Potassium - ABG Lab 4.52 mmol/L (3.70-5.30); pH, Arterial 7.47 (7.35-7.45)
[2021-01-16 08:27] LABS: ALV-art Gradient 263.925 mmHg (0-20); Puncture Site RBA
[2021-01-16] MEDS: Propofol 1,000 MG/100 ML VIAL IV PRN ×2 (09:06→19:23)
[2021-01-16] MEDS: Polyethylene Glycol 3350 17 GM Packet PER TUBE SCH (09:07)
[2021-01-16] MEDS: DULoxetine 30 MG CAP PO SCH (09:07)
[2021-01-16] MEDS: Saccharomyces boulardii 250 MG CAP PO SCH (09:07)
[2021-01-16] MEDS: Aspirin 81 mg Enteric Coated Tablet PO SCH (09:07)
[2021-01-16] MEDS: Dronedarone HCl 400 MG TAB PO SCH ×2 (09:07→16:17)
[2021-01-16] MEDS: Ezetimibe 10 MG TAB PO SCH (09:07)
[2021-01-16] MEDS: Famotidine 20 MG TAB PO SCH (09:07)
[2021-01-16] MEDS: Meropenem 1 GM in Sodium Chloride 0.9% 100 ML IVPB SCH (09:07)
[2021-01-16] MEDS: NPH, Human Insulin Isophane 300 UNIT/3 ML VIAL SC SCH ×2 (09:08→21:31)
[2021-01-16] MEDS: Lorazepam 2 MG/ML VIAL SLOW IVP PRN ×2 (09:09→19:15)
[2021-01-16] MEDS ORDERED: Dextrose 5% in Water 1,000 ML IV SCH (11:15)
[2021-01-16] MEDS: Micafungin 100 MG in Sodium Chloride 0.9% 100 ML IVPB SCH (11:37)
[2021-01-16] MEDS: Melatonin 3 MG TAB PO SCH (21:29)
[2021-01-16] MEDS: MEROPENEM 1 GM/50 ML 1 GM in Premix Bag 1 BAG IVPB SCH (21:29)
[2021-01-16] MEDS: Morphine 4 MG/ML VIAL SLOW IVP PRN (21:53)
[2021-01-17] MEDS: Lorazepam 2 MG/ML VIAL SLOW IVP PRN ×3 (01:21→08:57)
[2021-01-17] MEDS: methylPREDNISolone Sod Succ 40 MG VIAL IVP SCH ×5 (01:25→23:32)
[2021-01-17] MEDS: Propofol 1,000 MG/100 ML VIAL IV PRN ×2 (03:59→17:13)
[2021-01-17] MEDS: Diltiazem 125 MG in Sodium Chloride 0.9% 100 ML IVPB SCH (04:02)
[2021-01-17 04:51] LABS: Hemoglobin 8.2 g/dL (12.0-16.0); Mean Corpuscular HGB CONC 32.7 g/dL (32.0-36.0); Mean Corpuscular Hemoglobin 29.5 pg (27.0-31.0); Mean Corpuscular Volume 90.4 fL (78.0-98.0); Mean Platelet Volume 8.6 fL (7.4-10.4); Platelet Count 243 thou/uL (130-400); RBC Distribution Width 15.4 % (11.5-14.5); Red Blood Cell (RBC) Count 2.79 mill/uL (4.20-5.40); White Blood Cell (WBC) Count 14.5 thou/uL (4.8-10.8)
[2021-01-17 05:09] LABS: Band 1 % (5-11); Lymphocytes 5 % (21-51); MDiff Complete? YES; Monocytes 1 % (0-10); Neutrophil 93 % (42-75)
[2021-01-17 05:18] LABS: Anion Gap 12 mmol/L (10-20); Calc. Creatinine Clearance 35 mL/min (70-130); Calcium 8.4 mg/dL (7.8-10.44); Carbon Dioxide 29 mmol/L (23-31); Chloride 107 mmol/L (98-107); Potassium 4.4 mmol/L (3.5-5.1); Sodium 144 mmol/L (136-145)
[2021-01-17 05:30] LABS: Glucose 137 mg/dL (83-110)
[2021-01-17 05:35] LABS: BUN (Urea Nitrogen) 100 mg/dL (9.8-20.1)
[2021-01-17 07:06] LABS: Actual Bicarbonate (HCO3a) 32.5 mEq/L (22-28); Base Excess (BEa) 9.1 mEq/L (-2.0 to +3.0); CO2 Tension 39.2 mmHg (35.0-45.0); Calcium, Ionized (arterial) 1.14 mmol/L (1.12-1.30); Carboxyhemoglobin (COHb) 0.7 gm% (0.0-3.0); Hemoglobin (Hb) 7.1 g/dL (12.0-16.0); O2 Tension (PaO2), arterial 65.6 mmHg (> 70.0); Potassium - ABG Lab 4.43 mmol/L (3.70-5.30); pH, Arterial 7.54 (7.35-7.45)
[2021-01-17 07:07] LABS: Puncture Site RBA
[2021-01-17] MEDS ORDERED: Sodium Chloride 0.9% 1,000 ML IV SCH ×2 (08:30→16:31)
[2021-01-17] MEDS: Ezetimibe 10 MG TAB PO SCH (08:56)
[2021-01-17] MEDS: Saccharomyces boulardii 250 MG CAP PO SCH (08:56)
[2021-01-17] MEDS: Aspirin 81 mg Enteric Coated Tablet PO SCH (08:56)
[2021-01-17] MEDS: Polyethylene Glycol 3350 17 GM Packet PER TUBE SCH (08:56)
[2021-01-17] MEDS: DULoxetine 30 MG CAP PO SCH (08:56)
[2021-01-17] MEDS: Dronedarone HCl 400 MG TAB PO SCH ×2 (08:57→17:13)
[2021-01-17] MEDS: Acetaminophen 325 MG TAB PO PRN (08:57)
[2021-01-17] MEDS: Famotidine 20 MG TAB PO SCH (08:57)
[2021-01-17] MEDS: NPH, Human Insulin Isophane 300 UNIT/3 ML VIAL SC SCH ×2 (09:20→22:02)
[2021-01-17] MEDS: Insulin Regular 300 UNITS/3 ML VIAL SC PRN ×3 (11:12→23:43)
[2021-01-17] MEDS: MEROPENEM 1 GM/50 ML 1 GM in Premix Bag 1 BAG IVPB SCH ×2 (11:15→22:01)
[2021-01-17] MEDS: Micafungin 100 MG in Sodium Chloride 0.9% 100 ML IVPB SCH (13:04)
[2021-01-17] MEDS: Melatonin 3 MG TAB PO SCH (22:01)
[2021-01-18] MEDS: Lorazepam 2 MG/ML VIAL SLOW IVP PRN (00:07)
[2021-01-18] MEDS: Morphine 4 MG/ML VIAL SLOW IVP PRN ×2 (00:17→23:34)
[2021-01-18] MEDS: Propofol 1,000 MG/100 ML VIAL IV PRN ×2 (02:13→18:59)
[2021-01-18] MEDS: Diltiazem 125 MG in Sodium Chloride 0.9% 100 ML IVPB SCH (02:13)
[2021-01-18 04:37] LABS: Mean Corpuscular HGB CONC 33.8 g/dL (32.0-36.0); Mean Corpuscular Volume 88.8 fL (78.0-98.0); Mean Platelet Volume 8.8 fL (7.4-10.4); Platelet Count 250 thou/uL (130-400); RBC Distribution Width 15.4 % (11.5-14.5); Red Blood Cell (RBC) Count 2.68 mill/uL (4.20-5.40); White Blood Cell (WBC) Count 14.1 thou/uL (4.8-10.8)
[2021-01-18 04:40] LABS: ALT (SGPT) 13 U/L (8-55); AST (SGOT) 34 U/L (5-34); Albumin 2.8 g/dL (3.4-4.8); Alkaline Phosphatase 57 U/L (40-110); Anion Gap 13 mmol/L (10-20); BUN (Urea Nitrogen) 99 mg/dL (9.8-20.1); Bilirubin, Total 0.8 mg/dL (0.2-1.2); Calc. Creatinine Clearance 37 mL/min (70-130); Calcium 8.2 mg/dL (7.8-10.44); Carbon Dioxide 27 mmol/L (23-31); Chloride 113 mmol/L (98-107); Globulin 2.3 g/dL (2.4-3.5); Glucose 113 mg/dL (83-110); Protein, Total 5.1 g/dL (5.8-8.1); Sodium 149 mmol/L (136-145)
[2021-01-18 05:56] LABS: MDiff Complete? YES
[2021-01-18 05:57] LABS: Band 8 % (5-11); Lymphocytes 9 % (21-51); Monocytes 1 % (0-10); Neutrophil 82 % (42-75)
[2021-01-18] MEDS: methylPREDNISolone Sod Succ 40 MG VIAL IVP SCH ×4 (06:17→23:35)
[2021-01-18 07:16] LABS: Actual Bicarbonate (HCO3a) 28.1 mEq/L (22-28); Base Excess (BEa) 5.2 mEq/L (-2.0 to +3.0); CO2 Tension 34.1 mmHg (35.0-45.0); Calcium, Ionized (arterial) 1.11 mmol/L (1.12-1.30); Carboxyhemoglobin (COHb) 1.6 gm% (0.0-3.0); Hemoglobin (Hb) 7.6 g/dL (12.0-16.0); Potassium - ABG Lab 3.86 mmol/L (3.70-5.30); pH, Arterial 7.53 (7.35-7.45)
[2021-01-18 07:18] LABS: Puncture Site RRA
[2021-01-18 07:19] LABS: ALV-art Gradient 191.575 mmHg (0-20)
[2021-01-18] MEDS: Aspirin 81 mg Enteric Coated Tablet PO SCH (08:27)
[2021-01-18] MEDS: Dronedarone HCl 400 MG TAB PO SCH ×2 (08:27→17:39)
[2021-01-18] MEDS: Saccharomyces boulardii 250 MG CAP PO SCH (08:27)
[2021-01-18] MEDS: Ezetimibe 10 MG TAB PO SCH (08:28)
[2021-01-18] MEDS: Polyethylene Glycol 3350 17 GM Packet PER TUBE SCH (08:28)
[2021-01-18] MEDS: Famotidine 20 MG TAB PO SCH (08:28)
[2021-01-18] MEDS: NPH, Human Insulin Isophane 300 UNIT/3 ML VIAL SC SCH ×2 (09:01→21:00)
[2021-01-18] MEDS: DULoxetine 30 MG CAP PO SCH (09:01)
[2021-01-18] MEDS: MEROPENEM 1 GM/50 ML 1 GM in Premix Bag 1 BAG IVPB SCH ×2 (09:07→21:02)
[2021-01-18] MEDS: Dextrose 5% in Water 1,000 ML IV SCH ×2 (10:30→23:39)
[2021-01-18] MEDS: Micafungin 100 MG in Sodium Chloride 0.9% 100 ML IVPB SCH (12:14)
[2021-01-18] MEDS: Insulin Regular 300 UNITS/3 ML VIAL SC PRN ×2 (12:21→23:39)
[2021-01-18] MEDS: Melatonin 3 MG TAB PO SCH (20:58)
[2021-01-18] MEDS: Enoxaparin Sodium 40 MG/0.4 ML SYRINGE SC SCH (20:59)
[2021-01-19] MEDS: Lorazepam 2 MG/ML VIAL SLOW IVP PRN ×3 (00:01→13:49)
[2021-01-19] MEDS: Diltiazem 125 MG in Sodium Chloride 0.9% 100 ML IVPB SCH ×2 (02:54→22:15)
[2021-01-19 04:30] LABS: Hemoglobin 7.6 g/dL (12.0-16.0); Mean Corpuscular HGB CONC 33.6 g/dL (32.0-36.0); Mean Corpuscular Volume 89.3 fL (78.0-98.0); Mean Platelet Volume 8.7 fL (7.4-10.4); Platelet Count 232 thou/uL (130-400); RBC Distribution Width 15.4 % (11.5-14.5); Red Blood Cell (RBC) Count 2.54 mill/uL (4.20-5.40)
[2021-01-19 04:51] LABS: Anion Gap 12 mmol/L (10-20); BUN (Urea Nitrogen) 98 mg/dL (9.8-20.1); Calc. Creatinine Clearance 41 mL/min (70-130); Calcium 7.8 mg/dL (7.8-10.44); Carbon Dioxide 27 mmol/L (23-31); Chloride 113 mmol/L (98-107); Glucose 166 mg/dL (83-110); Potassium 3.9 mmol/L (3.5-5.1); Sodium 148 mmol/L (136-145)
[2021-01-19 05:25] LABS: Band 5 % (5-11); Lymphocytes 2 % (21-51); MDiff Complete? YES; Neutrophil 93 % (42-75)
[2021-01-19] MEDS: methylPREDNISolone Sod Succ 40 MG VIAL IVP SCH ×3 (06:00→18:02)
[2021-01-19] MEDS: Propofol 1,000 MG/100 ML VIAL IV PRN ×3 (06:03→21:53)
[2021-01-19] MEDS: Insulin Regular 300 UNITS/3 ML VIAL SC PRN ×4 (06:48→21:57)
[2021-01-19 07:03] LABS: Actual Bicarbonate (HCO3a) 31.9 mEq/L (22-28); Base Excess (BEa) 7.3 mEq/L (-2.0 to +3.0); Calcium, Ionized (arterial) 1.18 mmol/L (1.12-1.30); Carboxyhemoglobin (COHb) 1.1 gm% (0.0-3.0); Hemoglobin (Hb) 9.2 g/dL (12.0-16.0); Potassium - ABG Lab 5.31 mmol/L (3.70-5.30); pH, Arterial 7.46 (7.35-7.45)
[2021-01-19 07:07] LABS: Puncture Site RBA
[2021-01-19] MEDS: Aspirin Chewable 81 MG TAB PO SCH (08:00)
[2021-01-19] MEDS: Polyethylene Glycol 3350 17 GM Packet PER TUBE SCH (08:00)
[2021-01-19] MEDS: DULoxetine 30 MG CAP PO SCH (08:00)
[2021-01-19] MEDS: Dronedarone HCl 400 MG TAB PO SCH ×2 (08:00→18:02)
[2021-01-19] MEDS: Famotidine 20 MG TAB PO SCH (08:01)
[2021-01-19] MEDS: Saccharomyces boulardii 250 MG CAP PO SCH (08:01)
[2021-01-19] MEDS: NPH, Human Insulin Isophane 300 UNIT/3 ML VIAL SC SCH ×2 (08:01→21:54)
[2021-01-19] MEDS: Ezetimibe 10 MG TAB PO SCH (08:01)
[2021-01-19] MEDS: MEROPENEM 1 GM/50 ML 1 GM in Premix Bag 1 BAG IVPB SCH ×2 (09:24→21:53)
[2021-01-19] MEDS: Micafungin 100 MG in Sodium Chloride 0.9% 100 ML IVPB SCH (12:40)
[2021-01-19] MEDS: Dextrose 5% in Water 1,000 ML IV SCH (12:47)
[2021-01-19] MEDS: Morphine 4 MG/ML VIAL SLOW IVP PRN (14:41)
[2021-01-19] MEDS: Melatonin 3 MG TAB PO SCH (21:52)
[2021-01-19] MEDS: Enoxaparin Sodium 40 MG/0.4 ML SYRINGE SC SCH (21:53)
[2021-01-20] MEDS: methylPREDNISolone Sod Succ 40 MG VIAL IVP SCH ×5 (00:21→23:49)
[2021-01-20] MEDS: Dextrose 5% in Water 1,000 ML IV SCH ×3 (04:37→06:11)
[2021-01-20 04:44] LABS: Hemoglobin 7.5 g/dL (12.0-16.0); Mean Corpuscular HGB CONC 32.6 g/dL (32.0-36.0); Mean Corpuscular Hemoglobin 29.2 pg (27.0-31.0); Mean Corpuscular Volume 89.5 fL (78.0-98.0); Mean Platelet Volume 8.8 fL (7.4-10.4); Platelet Count 231 thou/uL (130-400); RBC Distribution Width 15.4 % (11.5-14.5); Red Blood Cell (RBC) Count 2.56 mill/uL (4.20-5.40)
[2021-01-20 05:10] LABS: Anion Gap 12 mmol/L (10-20); BUN (Urea Nitrogen) 97 mg/dL (9.8-20.1); Calc. Creatinine Clearance 46 mL/min (70-130); Calcium 7.8 mg/dL (7.8-10.44); Carbon Dioxide 25 mmol/L (23-31); Chloride 110 mmol/L (98-107); Glucose 181 mg/dL (83-110); Potassium 4.1 mmol/L (3.5-5.1); Sodium 143 mmol/L (136-145)
[2021-01-20 05:16] LABS: Band 16 % (5-11); Lymphocytes 5 % (21-51); MDiff Complete? YES; Monocytes 1 % (0-10); Neutrophil 78 % (42-75)
[2021-01-20] MEDS: Propofol 1,000 MG/100 ML VIAL IV PRN ×3 (06:11→22:44)
[2021-01-20 07:21] LABS: Actual Bicarbonate (HCO3a) 25.7 mEq/L (22-28); Base Excess (BEa) 1.9 mEq/L (-2.0 to +3.0); CO2 Tension 36.4 mmHg (35.0-45.0); Carboxyhemoglobin (COHb) 0.7 gm% (0.0-3.0); Hemoglobin (Hb) 7.9 g/dL (12.0-16.0); O2 Tension (PaO2), arterial 67.2 mmHg (> 70.0); pH, Arterial 7.47 (7.35-7.45)
[2021-01-20 07:28] LABS: Puncture Site RRA
[2021-01-20] MEDS: Dronedarone HCl 400 MG TAB PO SCH ×2 (08:37→16:39)
[2021-01-20] MEDS: DULoxetine 30 MG CAP PO SCH (08:37)
[2021-01-20] MEDS: Aspirin Chewable 81 MG TAB PO SCH (08:37)
[2021-01-20] MEDS: Ezetimibe 10 MG TAB PO SCH (08:37)
[2021-01-20] MEDS: Saccharomyces boulardii 250 MG CAP PO SCH (08:38)
[2021-01-20] MEDS: Famotidine 20 MG TAB PO SCH (08:38)
[2021-01-20] MEDS: Polyethylene Glycol 3350 17 GM Packet PER TUBE SCH (08:38)
[2021-01-20] MEDS: NPH, Human Insulin Isophane 300 UNIT/3 ML VIAL SC SCH ×2 (08:38→21:45)
[2021-01-20] MEDS: MEROPENEM 1 GM/50 ML 1 GM in Premix Bag 1 BAG IVPB SCH ×2 (08:57→21:45)
[2021-01-20] MEDS: Lorazepam 2 MG/ML VIAL SLOW IVP PRN (11:44)
[2021-01-20] MEDS: Micafungin 100 MG in Sodium Chloride 0.9% 100 ML IVPB SCH (13:00)
[2021-01-20] MEDS ORDERED: Lidocaine 1% w/Epinephrine 1:100K 20 ML VIAL ONE (14:40)
[2021-01-20] MEDS ORDERED: Bupivacaine 0.25% HCL 30 ML VIAL ONE (14:40)
[2021-01-20] MEDS ORDERED: Ondansetron PF 4 MG/2 ML Vial ONE (14:46)
[2021-01-20] MEDS ORDERED: Fentanyl 100 MCG/2 ML VIAL ONE (14:46)
[2021-01-20] MEDS ORDERED: PROPOFOL 200 MG/20 ML VIAL ONE (15:00)
[2021-01-20] MEDS ORDERED: Rocuronium Bromide 10 MG/ML (10ML VIAL) ONE (15:00)
[2021-01-20 16:55] LABS: SARS-CoV-2 PCR by NAA Not Detected (NotDetected)
[2021-01-20] MEDS: Enoxaparin Sodium 40 MG/0.4 ML SYRINGE SC SCH (21:45)
[2021-01-20] MEDS: Melatonin 3 MG TAB PO SCH (22:36)
[2021-01-21] MEDS: Lorazepam 2 MG/ML VIAL SLOW IVP PRN ×3 (02:52→22:53)
[2021-01-21] MEDS: Morphine 4 MG/ML VIAL SLOW IVP PRN ×2 (03:42→21:40)
[2021-01-21 04:49] LABS: Hemoglobin 7.6 g/dL (12.0-16.0); Mean Corpuscular HGB CONC 32.9 g/dL (32.0-36.0); Mean Corpuscular Hemoglobin 29.6 pg (27.0-31.0); Mean Platelet Volume 9.1 fL (7.4-10.4); Platelet Count 256 thou/uL (130-400); RBC Distribution Width 15.4 % (11.5-14.5); Red Blood Cell (RBC) Count 2.58 mill/uL (4.20-5.40); White Blood Cell (WBC) Count 17.5 thou/uL (4.8-10.8)
[2021-01-21 05:03] LABS: ALT (SGPT) 14 U/L (8-55); AST (SGOT) 15 U/L (5-34); Albumin 2.5 g/dL (3.4-4.8); Alkaline Phosphatase 60 U/L (40-110); Anion Gap 15 mmol/L (10-20); BUN (Urea Nitrogen) 80 mg/dL (9.8-20.1); Bilirubin, Total 0.8 mg/dL (0.2-1.2); Calc. Creatinine Clearance 48 mL/min (70-130); Calcium 7.7 mg/dL (7.8-10.44); Carbon Dioxide 23 mmol/L (23-31); Chloride 109 mmol/L (98-107); Globulin 2.2 g/dL (2.4-3.5); Glucose 92 mg/dL (83-110); Magnesium 2.9 mg/dL (1.6-2.6); Potassium 4.7 mmol/L (3.5-5.1); Protein, Total 4.7 g/dL (5.8-8.1); Sodium 142 mmol/L (136-145)
[2021-01-21 05:06] LABS: Phosphorus 4.5 mg/dL (2.3-4.7)
[2021-01-21 05:42] LABS: Band 2 % (5-11); Lymphocytes 3 % (21-51); MDiff Complete? YES; Monocytes 1 % (0-10); Neutrophil 94 % (42-75)
[2021-01-21] MEDS: methylPREDNISolone Sod Succ 40 MG VIAL IVP SCH ×3 (06:09→21:18)
[2021-01-21] MEDS: Propofol 1,000 MG/100 ML VIAL IV PRN ×2 (06:09→19:19)
[2021-01-21 07:43] LABS: Actual Bicarbonate (HCO3a) 25.9 mEq/L (22-28); Base Excess (BEa) 1.3 mEq/L (-2.0 to +3.0); Calcium, Ionized (arterial) 1.08 mmol/L (1.12-1.30); Carboxyhemoglobin (COHb) 0.8 gm% (0.0-3.0); Hemoglobin (Hb) 7.2 g/dL (12.0-16.0); O2 Tension (PaO2), arterial 135.4 mmHg (> 70.0); Potassium - ABG Lab 4.53 mmol/L (3.70-5.30); pH, Arterial 7.42 (7.35-7.45)
[2021-01-21 07:51] LABS: Puncture Site LRA
[2021-01-21] MEDS: Aspirin Chewable 81 MG TAB PO SCH (09:02)
[2021-01-21] MEDS: Polyethylene Glycol 3350 17 GM Packet PER TUBE SCH (09:02)
[2021-01-21] MEDS: Saccharomyces boulardii 250 MG CAP PO SCH (09:02)
[2021-01-21] MEDS: Ezetimibe 10 MG TAB PO SCH (09:02)
[2021-01-21] MEDS: Famotidine 20 MG TAB PO SCH (09:03)
[2021-01-21] MEDS: DULoxetine 30 MG CAP PO SCH (09:03)
[2021-01-21] MEDS: Dronedarone HCl 400 MG TAB PO SCH ×2 (09:03→16:24)
[2021-01-21] MEDS: NPH, Human Insulin Isophane 300 UNIT/3 ML VIAL SC SCH ×2 (09:24→21:41)
[2021-01-21] MEDS: MEROPENEM 1 GM/50 ML 1 GM in Premix Bag 1 BAG IVPB SCH (09:57)
[2021-01-21] MEDS: Diltiazem HCl SR 60 mg Capsule PO SCH ×2 (14:33→21:20)
[2021-01-21] MEDS: Mometasone 200 MCG/Formoterol 5 MCG 120 PUFF INHALER INH SCH (18:17)
[2021-01-21] MEDS: Melatonin 3 MG TAB PO SCH (21:17)
[2021-01-21] MEDS: Enoxaparin Sodium 40 MG/0.4 ML SYRINGE SC SCH (21:18)
[2021-01-22] MEDS: Propofol 1,000 MG/100 ML VIAL IV PRN ×4 (02:10→23:21)
[2021-01-22 04:27] LABS: #Lymphocytes 0.3 thou/uL (1.20-3.40); #Monocytes 0.4 thou/uL (0.11-0.59); #Neutrophils 11.7 thou/uL (1.40-6.50); %Basophils 0.1 % (0.0-1.0); %Eosinophils 0.2 % (0.0-10.0); %Lymphocytes 2.8 % (21.0-51.0); %Monocytes 2.8 % (0.0-10.0); %Neutrophils 94.1 % (42.0-75.0); Mean Corpuscular HGB CONC 30.7 g/dL (32.0-36.0); Mean Corpuscular Hemoglobin 27.5 pg (27.0-31.0); Mean Corpuscular Volume 89.6 fL (78.0-98.0); Mean Platelet Volume 8.6 fL (7.4-10.4); Platelet Count 232 thou/uL (130-400); RBC Distribution Width 15.6 % (11.5-14.5); Red Blood Cell (RBC) Count 2.54 mill/uL (4.20-5.40); White Blood Cell (WBC) Count 12.4 thou/uL (4.8-10.8)
[2021-01-22 04:49] LABS: ALT (SGPT) 14 U/L (8-55); AST (SGOT) 14 U/L (5-34); Albumin 2.3 g/dL (3.4-4.8); Alkaline Phosphatase 62 U/L (40-110); Anion Gap 13 mmol/L (10-20); BUN (Urea Nitrogen) 87 mg/dL (9.8-20.1); Bilirubin, Total 0.8 mg/dL (0.2-1.2); Calc. Creatinine Clearance 54 mL/min (70-130); Carbon Dioxide 25 mmol/L (23-31); Chloride 111 mmol/L (98-107); Globulin 2.1 g/dL (2.4-3.5); Glucose 108 mg/dL (83-110); Magnesium 2.7 mg/dL (1.6-2.6); Phosphorus 5.1 mg/dL (2.3-4.7); Potassium 4.8 mmol/L (3.5-5.1); Protein, Total 4.4 g/dL (5.8-8.1); Sodium 144 mmol/L (136-145)
[2021-01-22] MEDS: methylPREDNISolone Sod Succ 40 MG VIAL IVP SCH ×3 (06:07→21:04)
[2021-01-22] MEDS: Diltiazem HCl SR 60 mg Capsule PO SCH (06:08)
[2021-01-22] MEDS: Mometasone 200 MCG/Formoterol 5 MCG 120 PUFF INHALER INH SCH ×2 (07:18→18:18)
[2021-01-22 07:42] LABS: Actual Bicarbonate (HCO3a) 24.7 mEq/L (22-28); Base Excess (BEa) 0.6 mEq/L (-2.0 to +3.0); Calcium, Ionized (arterial) 1.04 mmol/L (1.12-1.30); Carboxyhemoglobin (COHb) 2.2 gm% (0.0-3.0); Hemoglobin (Hb) 6.9 g/dL (12.0-16.0); O2 Tension (PaO2), arterial 93.3 mmHg (> 70.0); Potassium - ABG Lab 4.55 mmol/L (3.70-5.30); pH, Arterial 7.44 (7.35-7.45)
[2021-01-22 07:52] LABS: Puncture Site RRA
[2021-01-22] MEDS: Polyethylene Glycol 3350 17 GM Packet PER TUBE SCH (08:47)
[2021-01-22] MEDS: Ezetimibe 10 MG TAB PO SCH (08:47)
[2021-01-22] MEDS: Saccharomyces boulardii 250 MG CAP PO SCH (08:48)
[2021-01-22] MEDS: Famotidine 20 MG TAB PO SCH (08:48)
[2021-01-22] MEDS: Dronedarone HCl 400 MG TAB PO SCH ×2 (08:48→17:12)
[2021-01-22] MEDS: DULoxetine 30 MG CAP PO SCH (08:48)
[2021-01-22] MEDS: NPH, Human Insulin Isophane 300 UNIT/3 ML VIAL SC SCH ×2 (09:53→21:15)
[2021-01-22] MEDS: Melatonin 3 MG TAB PO SCH (21:03)
[2021-01-22] MEDS: Enoxaparin Sodium 40 MG/0.4 ML SYRINGE SC SCH (21:05)
[2021-01-22] MEDS ORDERED: Melatonin 3 MG TAB ONE (21:23)
[2021-01-22] MEDS: Acetaminophen 650 MG/20.3 ML UDCUP PO PRN (23:21)
[2021-01-23] MEDS: Lorazepam 2 MG/ML VIAL SLOW IVP PRN (03:52)
[2021-01-23 04:23] LABS: #Eosinphils 0.1 thou/uL (0.0-0.7); #Lymphocytes 0.3 thou/uL (1.20-3.40); #Monocytes 0.2 thou/uL (0.11-0.59); #Neutrophils 13.5 thou/uL (1.40-6.50); %Basophils 0.1 % (0.0-1.0); %Eosinophils 0.5 % (0.0-10.0); %Lymphocytes 2.4 % (21.0-51.0); %Monocytes 1.7 % (0.0-10.0); %Neutrophils 95.4 % (42.0-75.0); Hemoglobin 10.9 g/dL (12.0-16.0); Mean Corpuscular HGB CONC 33.5 g/dL (32.0-36.0); Mean Corpuscular Hemoglobin 29.6 pg (27.0-31.0); Mean Corpuscular Volume 88.2 fL (78.0-98.0); Mean Platelet Volume 8.5 fL (7.4-10.4); Platelet Count 234 thou/uL (130-400); RBC Distribution Width 16.1 % (11.5-14.5); Red Blood Cell (RBC) Count 3.68 mill/uL (4.20-5.40); White Blood Cell (WBC) Count 14.2 thou/uL (4.8-10.8)
[2021-01-23 04:42] LABS: ALT (SGPT) 14 U/L (8-55); AST (SGOT) 12 U/L (5-34); Albumin 2.7 g/dL (3.4-4.8); Alkaline Phosphatase 69 U/L (40-110); Anion Gap 15 mmol/L (10-20); BUN (Urea Nitrogen) 80 mg/dL (9.8-20.1); Calc. Creatinine Clearance 50 mL/min (70-130); Calcium 8.1 mg/dL (7.8-10.44); Carbon Dioxide 23 mmol/L (23-31); Chloride 111 mmol/L (98-107); Globulin 2.3 g/dL (2.4-3.5); Glucose 147 mg/dL (83-110); Magnesium 3.1 mg/dL (1.6-2.6); Phosphorus 5.7 mg/dL (2.3-4.7); Potassium 5.2 mmol/L (3.5-5.1); Sodium 144 mmol/L (136-145)
[2021-01-23] MEDS: methylPREDNISolone Sod Succ 40 MG VIAL IVP SCH ×3 (05:29→22:43)
[2021-01-23] MEDS: Propofol 1,000 MG/100 ML VIAL IV PRN ×3 (05:46→23:35)
[2021-01-23] MEDS: Mometasone 200 MCG/Formoterol 5 MCG 120 PUFF INHALER INH SCH ×2 (07:05→18:25)
[2021-01-23] MEDS: DULoxetine 30 MG CAP PO SCH (08:40)
[2021-01-23] MEDS: Famotidine 20 MG TAB PO SCH (08:40)
[2021-01-23] MEDS: Dronedarone HCl 400 MG TAB PO SCH ×2 (08:40→16:49)
[2021-01-23] MEDS: Saccharomyces boulardii 250 MG CAP PO SCH (08:41)
[2021-01-23] MEDS: Polyethylene Glycol 3350 17 GM Packet PER TUBE SCH (08:41)
[2021-01-23] MEDS: Aspirin Chewable 81 MG TAB PO SCH (08:41)
[2021-01-23] MEDS: Ezetimibe 10 MG TAB PO SCH (08:41)
[2021-01-23] MEDS: NPH, Human Insulin Isophane 300 UNIT/3 ML VIAL SC SCH ×2 (09:40→22:01)
[2021-01-23] MEDS: Melatonin 3 MG TAB PO SCH (20:10)
[2021-01-23] MEDS: Enoxaparin Sodium 40 MG/0.4 ML SYRINGE SC SCH (20:10)
[2021-01-24] MEDS: Lorazepam 2 MG/ML VIAL SLOW IVP PRN (00:21)
[2021-01-24] MEDS: Acetaminophen 650 MG/20.3 ML UDCUP PO PRN (00:21)
[2021-01-24] MEDS: Insulin Regular 300 UNITS/3 ML VIAL SC PRN ×2 (03:49→11:13)
[2021-01-24 04:12] LABS: #Basophils 0.1 thou/uL (0.0-0.2); #Lymphocytes 0.2 thou/uL (1.20-3.40); #Monocytes 0.3 thou/uL (0.11-0.59); #Neutrophils 12.5 thou/uL (1.40-6.50); %Basophils 0.7 % (0.0-1.0); %Eosinophils 0.2 % (0.0-10.0); %Lymphocytes 1.9 % (21.0-51.0); %Monocytes 2.1 % (0.0-10.0); %Neutrophils 95.1 % (42.0-75.0); Hemoglobin 10.7 g/dL (12.0-16.0); Mean Corpuscular HGB CONC 32.2 g/dL (32.0-36.0); Mean Corpuscular Volume 90.1 fL (78.0-98.0); Mean Platelet Volume 8.3 fL (7.4-10.4); Platelet Count 209 thou/uL (130-400); RBC Distribution Width 16.1 % (11.5-14.5); Red Blood Cell (RBC) Count 3.67 mill/uL (4.20-5.40); White Blood Cell (WBC) Count 13.1 thou/uL (4.8-10.8)
[2021-01-24 04:39] LABS: ALT (SGPT) 13 U/L (8-55); AST (SGOT) 13 U/L (5-34); Albumin 2.5 g/dL (3.4-4.8); Alkaline Phosphatase 64 U/L (40-110); Anion Gap 13 mmol/L (10-20); BUN (Urea Nitrogen) 80 mg/dL (9.8-20.1); Calc. Creatinine Clearance 60 mL/min (70-130); Calcium 8.2 mg/dL (7.8-10.44); Carbon Dioxide 25 mmol/L (23-31); Chloride 114 mmol/L (98-107); Globulin 2.4 g/dL (2.4-3.5); Glucose 170 mg/dL (83-110); Magnesium 2.9 mg/dL (1.6-2.6); Phosphorus 4.5 mg/dL (2.3-4.7); Potassium 4.8 mmol/L (3.5-5.1); Protein, Total 4.9 g/dL (5.8-8.1); Sodium 147 mmol/L (136-145)
[2021-01-24] MEDS: methylPREDNISolone Sod Succ 40 MG VIAL IVP SCH ×2 (05:00→20:27)
[2021-01-24 06:40] LABS: Actual Bicarbonate (HCO3a) 23.6 mEq/L (22-28); CO2 Tension 43.5 mmHg (35.0-45.0); Calcium, Ionized (arterial) 1.19 mmol/L (1.12-1.30); Carboxyhemoglobin (COHb) 0.7 gm% (0.0-3.0); Hemoglobin (Hb) 10.3 g/dL (12.0-16.0); O2 Tension (PaO2), arterial 73.4 mmHg (> 70.0); Potassium - ABG Lab 4.68 mmol/L (3.70-5.30); pH, Arterial 7.35 (7.35-7.45)
[2021-01-24 06:44] LABS: Puncture Site RRA
[2021-01-24 06:45] LABS: ALV-art Gradient 157.425 mmHg (0-20)
[2021-01-24] MEDS: Mometasone 200 MCG/Formoterol 5 MCG 120 PUFF INHALER INH SCH ×2 (06:46→18:41)
[2021-01-24] MEDS: Dronedarone HCl 400 MG TAB PO SCH ×2 (07:58→16:42)
[2021-01-24] MEDS: Propofol 1,000 MG/100 ML VIAL IV PRN ×2 (07:58→16:42)
[2021-01-24] MEDS: DULoxetine 30 MG CAP PO SCH (08:01)
[2021-01-24] MEDS: Polyethylene Glycol 3350 17 GM Packet PER TUBE SCH (08:01)
[2021-01-24] MEDS: Aspirin Chewable 81 MG TAB PO SCH (08:01)
[2021-01-24] MEDS: Famotidine 20 MG TAB PO SCH (08:02)
[2021-01-24] MEDS: Saccharomyces boulardii 250 MG CAP PO SCH (08:02)
[2021-01-24] MEDS: Ezetimibe 10 MG TAB PO SCH (08:02)
[2021-01-24] MEDS: NPH, Human Insulin Isophane 300 UNIT/3 ML VIAL SC SCH ×2 (11:10→22:41)
[2021-01-24] MEDS: Morphine 4 MG/ML VIAL SLOW IVP PRN (13:27)
[2021-01-24] MEDS: Melatonin 3 MG TAB PO SCH (20:27)
[2021-01-24] MEDS: Enoxaparin Sodium 40 MG/0.4 ML SYRINGE SC SCH (20:27)
[2021-01-25] MEDS: Morphine 4 MG/ML VIAL SLOW IVP PRN (02:21)
[2021-01-25] MEDS: Lorazepam 2 MG/ML VIAL SLOW IVP PRN ×3 (03:06→15:13)
[2021-01-25 03:31] LABS: #Lymphocytes 0.4 thou/uL (1.20-3.40); #Monocytes 0.3 thou/uL (0.11-0.59); #Neutrophils 10.7 thou/uL (1.40-6.50); %Basophils 0.1 % (0.0-1.0); %Eosinophils 0.3 % (0.0-10.0); %Lymphocytes 3.2 % (21.0-51.0); %Monocytes 2.3 % (0.0-10.0); %Neutrophils 94.1 % (42.0-75.0); Hemoglobin 10.8 g/dL (12.0-16.0); Mean Corpuscular HGB CONC 33.1 g/dL (32.0-36.0); Mean Corpuscular Hemoglobin 30.1 pg (27.0-31.0); Mean Platelet Volume 8.2 fL (7.4-10.4); Platelet Count 187 thou/uL (130-400); RBC Distribution Width 15.9 % (11.5-14.5); Red Blood Cell (RBC) Count 3.58 mill/uL (4.20-5.40); White Blood Cell (WBC) Count 11.4 thou/uL (4.8-10.8)
[2021-01-25] MEDS: Propofol 1,000 MG/100 ML VIAL IV PRN (04:07)
[2021-01-25 04:22] LABS: Albumin 2.6 g/dL (3.4-4.8)
[2021-01-25 04:23] LABS: Chloride 115 mmol/L (98-107); Sodium 148 mmol/L (136-145)
[2021-01-25 04:24] LABS: Calcium 8.2 mg/dL (7.8-10.44); Glucose 117 mg/dL (83-110)
[2021-01-25 04:25] LABS: Globulin 2.3 g/dL (2.4-3.5); Protein, Total 4.9 g/dL (5.8-8.1)
[2021-01-25 04:26] LABS: Anion Gap 13 mmol/L (10-20); Bilirubin, Total 0.9 mg/dL (0.2-1.2); Carbon Dioxide 25 mmol/L (23-31)
[2021-01-25 04:27] LABS: Alkaline Phosphatase 64 U/L (40-110)
[2021-01-25 04:28] LABS: Calc. Creatinine Clearance 0 mL/min (70-130); Phosphorus 4.6 mg/dL (2.3-4.7)
[2021-01-25 04:29] LABS: BUN (Urea Nitrogen) 74 mg/dL (9.8-20.1)
[2021-01-25 04:30] LABS: ALT (SGPT) 14 U/L (8-55); AST (SGOT) 16 U/L (5-34); Magnesium 2.6 mg/dL (1.6-2.6)
[2021-01-25] MEDS: Mometasone 200 MCG/Formoterol 5 MCG 120 PUFF INHALER INH SCH ×2 (06:28→18:53)
[2021-01-25 06:36] LABS: Base Excess (BEa) 0.2 mEq/L (-2.0 to +3.0); CO2 Tension 54.8 mmHg (35.0-45.0); Carboxyhemoglobin (COHb) 0.3 gm% (0.0-3.0); Hemoglobin (Hb) 10.3 g/dL (12.0-16.0); O2 Tension (PaO2), arterial 164.7 mmHg (> 70.0); Potassium - ABG Lab 4.81 mmol/L (3.70-5.30); pH, Arterial 7.31 (7.35-7.45)
[2021-01-25 06:39] LABS: Puncture Site RRA
[2021-01-25] MEDS: methylPREDNISolone Sod Succ 40 MG VIAL IVP SCH ×2 (08:11→22:01)
[2021-01-25] MEDS: Famotidine 20 MG TAB PO SCH (08:12)
[2021-01-25] MEDS: Aspirin Chewable 81 MG TAB PO SCH (08:12)
[2021-01-25] MEDS: Dronedarone HCl 400 MG TAB PO SCH ×2 (08:12→17:10)
[2021-01-25] MEDS: Ezetimibe 10 MG TAB PO SCH (08:13)
[2021-01-25] MEDS ORDERED: Dextrose 5% in Water 1,000 ML IV SCH (08:30)
[2021-01-25] MEDS: Diltiazem 125 MG in Sodium Chloride 0.9% 100 ML IVPB SCH ×2 (09:08→18:04)
[2021-01-25] MEDS ORDERED: Digoxin 0.5 MG/2 ML AMP SLOW IVP SCH (10:00)
[2021-01-25] MEDS: Saccharomyces boulardii 250 MG CAP PO SCH (10:16)
[2021-01-25] MEDS: DULoxetine 30 MG CAP PO SCH (10:48)
[2021-01-25] MEDS: NPH, Human Insulin Isophane 300 UNIT/3 ML VIAL SC SCH ×2 (10:48→22:27)
[2021-01-25] MEDS: Polyethylene Glycol 3350 17 GM Packet PER TUBE SCH (10:55)
[2021-01-25] MEDS ORDERED: Cefdinir 300 MG CAP PO SCH ×2 (12:30→21:00)
[2021-01-25] MEDS: Insulin Regular 300 UNITS/3 ML VIAL SC PRN (17:07)
[2021-01-25] MEDS: Acetaminophen 650 MG/20.3 ML UDCUP PO PRN (17:08)
[2021-01-25] MEDS: Enoxaparin Sodium 40 MG/0.4 ML SYRINGE SC SCH (22:01)
[2021-01-25] MEDS: Melatonin 3 MG TAB PO SCH (22:03)
[2021-01-26] MEDS: Diltiazem 125 MG in Sodium Chloride 0.9% 100 ML IVPB SCH (01:52)
[2021-01-26] MEDS: Acetaminophen 650 MG/20.3 ML UDCUP PO PRN ×2 (01:53→19:57)
[2021-01-26 04:12] LABS: #Lymphocytes 0.5 thou/uL (1.20-3.40); #Monocytes 0.3 thou/uL (0.11-0.59); #Neutrophils 13.6 thou/uL (1.40-6.50); %Eosinophils 0.2 % (0.0-10.0); %Lymphocytes 3.2 % (21.0-51.0); %Neutrophils 94.6 % (42.0-75.0); Mean Corpuscular HGB CONC 33.5 g/dL (32.0-36.0); Mean Corpuscular Hemoglobin 30.5 pg (27.0-31.0); Mean Platelet Volume 8.5 fL (7.4-10.4); Platelet Count 186 thou/uL (130-400); RBC Distribution Width 15.5 % (11.5-14.5); Red Blood Cell (RBC) Count 3.62 mill/uL (4.20-5.40); White Blood Cell (WBC) Count 14.4 thou/uL (4.8-10.8)
[2021-01-26 04:38] LABS: AST (SGOT) 16 U/L (5-34); Albumin 2.7 g/dL (3.4-4.8); Anion Gap 10 mmol/L (10-20); Bilirubin, Total 0.9 mg/dL (0.2-1.2); Calc. Creatinine Clearance 76 mL/min (70-130); Calcium 8.3 mg/dL (7.8-10.44); Carbon Dioxide 27 mmol/L (23-31); Chloride 113 mmol/L (98-107); Globulin 2.5 g/dL (2.4-3.5); Glucose 113 mg/dL (83-110); Phosphorus 3.9 mg/dL (2.3-4.7); Potassium 5.1 mmol/L (3.5-5.1); Protein, Total 5.2 g/dL (5.8-8.1); Sodium 145 mmol/L (136-145)
[2021-01-26 04:45] LABS: ALT (SGPT) 15 U/L (8-55); Alkaline Phosphatase 69 U/L (40-110); BUN (Urea Nitrogen) 70 mg/dL (9.8-20.1); Magnesium 2.4 mg/dL (1.6-2.6)
[2021-01-26 07:23] LABS: Actual Bicarbonate (HCO3a) 25.1 mEq/L (22-28); Base Excess (BEa) -2.2 mEq/L (-2.0 to +3.0); CO2 Tension 54.8 mmHg (35.0-45.0); Calcium, Ionized (arterial) 1.21 mmol/L (1.12-1.30); Carboxyhemoglobin (COHb) 0.4 gm% (0.0-3.0); Hemoglobin (Hb) 11.2 g/dL (12.0-16.0); O2 Tension (PaO2), arterial 64.2 mmHg (> 70.0); Potassium - ABG Lab 4.87 mmol/L (3.70-5.30); pH, Arterial 7.28 (7.35-7.45)
[2021-01-26 07:50] LABS: Puncture Site RRA
[2021-01-26] MEDS: Mometasone 200 MCG/Formoterol 5 MCG 120 PUFF INHALER INH SCH ×2 (07:53→18:40)
[2021-01-26] MEDS: Saccharomyces boulardii 250 MG CAP PO SCH (09:00)
[2021-01-26] MEDS: Famotidine 20 MG TAB PO SCH (09:00)
[2021-01-26] MEDS: DULoxetine 30 MG CAP PO SCH (09:00)
[2021-01-26] MEDS: NPH, Human Insulin Isophane 300 UNIT/3 ML VIAL SC SCH ×2 (09:00→22:12)
[2021-01-26] MEDS: Ezetimibe 10 MG TAB PO SCH (09:00)
[2021-01-26] MEDS: Dronedarone HCl 400 MG TAB PO SCH ×2 (09:00→16:34)
[2021-01-26] MEDS ORDERED: Furosemide 40 MG/4 ML VIAL SLOW IVP SCH (10:15)
[2021-01-26] MEDS: methylPREDNISolone Sod Succ 40 MG VIAL IVP SCH ×2 (10:40→22:11)
[2021-01-26] MEDS: Polyethylene Glycol 3350 17 GM Packet PER TUBE SCH (10:46)
[2021-01-26] MEDS: Aspirin Chewable 81 MG TAB PO SCH (10:46)
[2021-01-26] MEDS: Enoxaparin Sodium 40 MG/0.4 ML SYRINGE SC SCH (22:10)
[2021-01-26] MEDS: Melatonin 3 MG TAB PO SCH (22:11)
[2021-01-27] MEDS: Acetaminophen 650 MG/20.3 ML UDCUP PO PRN ×3 (00:08→22:23)
[2021-01-27] MEDS: Diltiazem 125 MG in Sodium Chloride 0.9% 100 ML IVPB SCH ×2 (03:36→22:05)
[2021-01-27 04:07] LABS: #Lymphocytes 0.6 thou/uL (1.20-3.40); #Monocytes 0.3 thou/uL (0.11-0.59); #Neutrophils 11.5 thou/uL (1.40-6.50); %Basophils 0.2 % (0.0-1.0); %Eosinophils 0.1 % (0.0-10.0); %Lymphocytes 4.8 % (21.0-51.0); %Monocytes 2.2 % (0.0-10.0); %Neutrophils 92.8 % (42.0-75.0); Hemoglobin 10.1 g/dL (12.0-16.0); Mean Corpuscular HGB CONC 30.9 g/dL (32.0-36.0); Mean Corpuscular Hemoglobin 28.2 pg (27.0-31.0); Mean Corpuscular Volume 91.5 fL (78.0-98.0); Mean Platelet Volume 8.5 fL (7.4-10.4); Platelet Count 171 thou/uL (130-400); RBC Distribution Width 15.6 % (11.5-14.5); Red Blood Cell (RBC) Count 3.58 mill/uL (4.20-5.40); White Blood Cell (WBC) Count 12.4 thou/uL (4.8-10.8)
[2021-01-27 04:36] LABS: Anion Gap 13 mmol/L (10-20); BUN (Urea Nitrogen) 72 mg/dL (9.8-20.1); Calc. Creatinine Clearance 37 mL/min (70-130); Calcium 8.3 mg/dL (7.8-10.44); Carbon Dioxide 26 mmol/L (23-31); Chloride 112 mmol/L (98-107); Glucose 86 mg/dL (83-110); Potassium 4.6 mmol/L (3.5-5.1); Sodium 146 mmol/L (136-145)
[2021-01-27 06:59] LABS: Actual Bicarbonate (HCO3a) 27.1 mEq/L (22-28); Base Excess (BEa) 0.9 mEq/L (-2.0 to +3.0); Calcium, Ionized (arterial) 1.19 mmol/L (1.12-1.30); Carboxyhemoglobin (COHb) 0.3 gm% (0.0-3.0); Hemoglobin (Hb) 10.3 g/dL (12.0-16.0); O2 Tension (PaO2), arterial 137.5 mmHg (> 70.0); Potassium - ABG Lab 4.38 mmol/L (3.70-5.30); pH, Arterial 7.34 (7.35-7.45)
[2021-01-27 07:02] LABS: Puncture Site RRA
[2021-01-27] MEDS: Mometasone 200 MCG/Formoterol 5 MCG 120 PUFF INHALER INH SCH ×2 (07:03→18:30)
[2021-01-27] MEDS: Metoprolol Tartrate 5 MG/5 ML VIAL IVP SCH ×2 (07:12→10:39)
[2021-01-27 07:13] LABS: Magnesium 2.1 mg/dL (1.6-2.6)
[2021-01-27] MEDS: Dronedarone HCl 400 MG TAB PO SCH ×2 (07:57→17:07)
[2021-01-27] MEDS: Aspirin Chewable 81 MG TAB PO SCH (08:00)
[2021-01-27] MEDS: Ezetimibe 10 MG TAB PO SCH (08:00)
[2021-01-27] MEDS: Famotidine 20 MG TAB PO SCH ×2 (08:01→22:23)
[2021-01-27] MEDS: methylPREDNISolone Sod Succ 40 MG VIAL IVP SCH ×2 (08:01→22:23)
[2021-01-27] MEDS: Saccharomyces boulardii 250 MG CAP PO SCH (08:01)
[2021-01-27] MEDS: Polyethylene Glycol 3350 17 GM Packet PER TUBE SCH (08:03)
[2021-01-27] MEDS: NPH, Human Insulin Isophane 300 UNIT/3 ML VIAL SC SCH ×2 (10:41→23:07)
[2021-01-27] MEDS: DULoxetine 30 MG CAP PO SCH (10:48)
[2021-01-27] MEDS ORDERED: Metoprolol Tartrate 5 MG/5 ML VIAL IVP PRN (11:47)
[2021-01-27] MEDS: Enoxaparin Sodium 40 MG/0.4 ML SYRINGE SC SCH (22:22)
[2021-01-27] MEDS: Melatonin 3 MG TAB PO SCH (22:23)
[2021-01-28 05:02] LABS: #Lymphocytes 0.7 thou/uL (1.20-3.40); #Monocytes 0.4 thou/uL (0.11-0.59); #Neutrophils 13.1 thou/uL (1.40-6.50); %Eosinophils 0.1 % (0.0-10.0); %Lymphocytes 5.1 % (21.0-51.0); %Monocytes 2.8 % (0.0-10.0); Hemoglobin 9.9 g/dL (12.0-16.0); Mean Corpuscular Volume 90.6 fL (78.0-98.0); Mean Platelet Volume 8.9 fL (7.4-10.4); Platelet Count 153 thou/uL (130-400); RBC Distribution Width 15.5 % (11.5-14.5); White Blood Cell (WBC) Count 14.3 thou/uL (4.8-10.8)
[2021-01-28 05:25] LABS: Anion Gap 15 mmol/L (10-20); BUN (Urea Nitrogen) 70 mg/dL (9.8-20.1); Calc. Creatinine Clearance 79 mL/min (70-130); Calcium 8.5 mg/dL (7.8-10.44); Carbon Dioxide 24 mmol/L (23-31); Chloride 114 mmol/L (98-107); Glucose 143 mg/dL (83-110); Magnesium 2.1 mg/dL (1.6-2.6); Potassium 4.6 mmol/L (3.5-5.1); Sodium 148 mmol/L (136-145)
[2021-01-28] MEDS ORDERED: Acetaminophen 325 MG TAB PO SCH (05:45)
[2021-01-28] MEDS: Mometasone 200 MCG/Formoterol 5 MCG 120 PUFF INHALER INH SCH ×2 (06:51→18:37)
[2021-01-28 07:11] LABS: Actual Bicarbonate (HCO3a) 26.3 mEq/L (22-28); Base Excess (BEa) 0.7 mEq/L (-2.0 to +3.0); CO2 Tension 46.8 mmHg (35.0-45.0); Calcium, Ionized (arterial) 1.17 mmol/L (1.12-1.30); Carboxyhemoglobin (COHb) 0.1 gm% (0.0-3.0); Hemoglobin (Hb) 9.8 g/dL (12.0-16.0); Potassium - ABG Lab 4.29 mmol/L (3.70-5.30); pH, Arterial 7.37 (7.35-7.45)
[2021-01-28 07:27] LABS: O2 Tension (PaO2), arterial 59.6 mmHg (> 70.0)
[2021-01-28 07:28] LABS: Puncture Site RRA
[2021-01-28] MEDS: Dronedarone HCl 400 MG TAB PO SCH ×2 (08:41→16:31)
[2021-01-28] MEDS: Saccharomyces boulardii 250 MG CAP PO SCH (08:41)
[2021-01-28] MEDS: Ezetimibe 10 MG TAB PO SCH (08:42)
[2021-01-28] MEDS: methylPREDNISolone Sod Succ 40 MG VIAL IVP SCH ×2 (08:42→21:32)
[2021-01-28] MEDS: Aspirin Chewable 81 MG TAB PO SCH (08:42)
[2021-01-28] MEDS: DULoxetine 30 MG CAP PO SCH (08:43)
[2021-01-28] MEDS: Famotidine 20 MG TAB PO SCH ×2 (08:45→21:32)
[2021-01-28] MEDS: Polyethylene Glycol 3350 17 GM Packet PER TUBE SCH (09:40)
[2021-01-28 12:38] LABS: SARS-CoV-2 PCR by NAA Not Detected (NotDetected)
[2021-01-28] MEDS: NPH, Human Insulin Isophane 300 UNIT/3 ML VIAL SC SCH ×2 (14:55→21:36)
[2021-01-28] MEDS: Acetaminophen 650 MG/20.3 ML UDCUP PO PRN (18:08)
[2021-01-28] MEDS: Enoxaparin Sodium 40 MG/0.4 ML SYRINGE SC SCH (21:31)
[2021-01-28] MEDS: Melatonin 3 MG TAB PO SCH (21:32)
[2021-01-29] MEDS: Diltiazem 125 MG in Sodium Chloride 0.9% 100 ML IVPB SCH ×2 (00:06→19:58)
[2021-01-29] MEDS: Insulin Regular 300 UNITS/3 ML VIAL SC PRN (03:59)
[2021-01-29 04:13] LABS: #Lymphocytes 0.6 thou/uL (1.20-3.40); #Monocytes 0.3 thou/uL (0.11-0.59); #Neutrophils 12.4 thou/uL (1.40-6.50); %Eosinophils 0.1 % (0.0-10.0); %Lymphocytes 4.2 % (21.0-51.0); %Monocytes 2.1 % (0.0-10.0); %Neutrophils 93.6 % (42.0-75.0); Hemoglobin 8.9 g/dL (12.0-16.0); Mean Corpuscular Hemoglobin 28.9 pg (27.0-31.0); Mean Corpuscular Volume 90.4 fL (78.0-98.0); Mean Platelet Volume 8.9 fL (7.4-10.4); Platelet Count 122 thou/uL (130-400); RBC Distribution Width 15.2 % (11.5-14.5); Red Blood Cell (RBC) Count 3.09 mill/uL (4.20-5.40); White Blood Cell (WBC) Count 13.2 thou/uL (4.8-10.8)
[2021-01-29 04:23] LABS: Calcium 8.1 mg/dL (7.8-10.44); Chloride 117 mmol/L (98-107); Potassium 3.9 mmol/L (3.5-5.1); Sodium 151 mmol/L (136-145)
[2021-01-29 04:33] LABS: BUN (Urea Nitrogen) 61 mg/dL (9.8-20.1); Calc. Creatinine Clearance 83 mL/min (70-130); Carbon Dioxide 26 mmol/L (23-31); Glucose 166 mg/dL (83-110); Magnesium 2.2 mg/dL (1.6-2.6)
[2021-01-29 04:38] LABS: Anion Gap 12 mmol/L (10-20)
[2021-01-29] MEDS: Mometasone 200 MCG/Formoterol 5 MCG 120 PUFF INHALER INH SCH ×2 (07:15→18:45)
[2021-01-29] MEDS: Polyethylene Glycol 3350 17 GM Packet PER TUBE SCH (09:22)
[2021-01-29] MEDS: Aspirin Chewable 81 MG TAB PO SCH (09:23)
[2021-01-29] MEDS: Dronedarone HCl 400 MG TAB PO SCH ×2 (09:23→16:30)
[2021-01-29] MEDS: Famotidine 20 MG TAB PO SCH ×2 (09:23→20:54)
[2021-01-29] MEDS: Saccharomyces boulardii 250 MG CAP PO SCH (09:23)
[2021-01-29] MEDS: methylPREDNISolone Sod Succ 40 MG VIAL IVP SCH (09:23)
[2021-01-29] MEDS: Ezetimibe 10 MG TAB PO SCH (09:23)
[2021-01-29] MEDS: DULoxetine 30 MG CAP PO SCH (09:24)
[2021-01-29] MEDS: Enoxaparin Sodium 40 MG/0.4 ML SYRINGE SC SCH (20:53)
[2021-01-29] MEDS: Melatonin 3 MG TAB PO SCH (20:54)
[2021-01-29] MEDS: Acetaminophen 650 MG/20.3 ML UDCUP PO PRN (23:51)
[2021-01-30 04:57] LABS: #Lymphocytes 0.8 thou/uL (1.20-3.40); #Monocytes 0.7 thou/uL (0.11-0.59); %Eosinophils 0.3 % (0.0-10.0); %Monocytes 5.7 % (0.0-10.0); %Neutrophils 87.1 % (42.0-75.0); Hemoglobin 8.8 g/dL (12.0-16.0); Mean Corpuscular HGB CONC 32.4 g/dL (32.0-36.0); Mean Corpuscular Hemoglobin 29.8 pg (27.0-31.0); Mean Corpuscular Volume 91.8 fL (78.0-98.0); Mean Platelet Volume 8.9 fL (7.4-10.4); Platelet Count 124 thou/uL (130-400); RBC Distribution Width 15.5 % (11.5-14.5); Red Blood Cell (RBC) Count 2.97 mill/uL (4.20-5.40); White Blood Cell (WBC) Count 11.5 thou/uL (4.8-10.8)
[2021-01-30 05:18] LABS: Anion Gap 9 mmol/L (10-20); Calcium 8.6 mg/dL (7.8-10.44); Carbon Dioxide 30 mmol/L (23-31); Chloride 118 mmol/L (98-107); Potassium 3.6 mmol/L (3.5-5.1); Sodium 153 mmol/L (136-145)
[2021-01-30 05:21] LABS: Glucose 158 mg/dL (83-110)
[2021-01-30 05:24] LABS: Calc. Creatinine Clearance 88 mL/min (70-130)
[2021-01-30 05:25] LABS: BUN (Urea Nitrogen) 56 mg/dL (9.8-20.1)
[2021-01-30 07:02] LABS: Actual Bicarbonate (HCO3a) 26.8 mEq/L (22-28); Base Excess (BEa) -0.8 mEq/L (-2.0 to +3.0); CO2 Tension 59.9 mmHg (35.0-45.0); Calcium, Ionized (arterial) 1.21 mmol/L (1.12-1.30); Carboxyhemoglobin (COHb) 0.3 gm% (0.0-3.0); Hemoglobin (Hb) 10.1 g/dL (12.0-16.0); O2 Tension (PaO2), arterial 77.1 mmHg (> 70.0); Potassium - ABG Lab 3.56 mmol/L (3.70-5.30); pH, Arterial 7.27 (7.35-7.45)
[2021-01-30] MEDS: Mometasone 200 MCG/Formoterol 5 MCG 120 PUFF INHALER INH SCH ×2 (07:17→18:38)
[2021-01-30 07:19] LABS: ALV-art Gradient 418.425 mmHg (0-20); Puncture Site RRA
[2021-01-30] MEDS ORDERED: Fentanyl 100 MCG/2 ML VIAL SLOW IVP PRN (08:54)
[2021-01-30] MEDS: methylPREDNISolone Sod Succ 40 MG VIAL IVP SCH (10:15)
[2021-01-30] MEDS: Senokot S 8.6-50 MG TAB PO SCH ×2 (10:16→21:39)
[2021-01-30] MEDS: Ezetimibe 10 MG TAB PO SCH (10:16)
[2021-01-30] MEDS: Famotidine 20 MG TAB PO SCH ×2 (10:17→21:40)
[2021-01-30] MEDS: Polyethylene Glycol 3350 17 GM Packet PER TUBE SCH (10:17)
[2021-01-30] MEDS: Dronedarone HCl 400 MG TAB PO SCH ×2 (10:17→19:56)
[2021-01-30] MEDS: Saccharomyces boulardii 250 MG CAP PO SCH (10:17)
[2021-01-30] MEDS: Aspirin Chewable 81 MG TAB PO SCH (10:17)
[2021-01-30] MEDS: DULoxetine 30 MG CAP PO SCH (10:22)
[2021-01-30] MEDS: Diltiazem 125 MG in Sodium Chloride 0.9% 100 ML IVPB SCH ×2 (11:41→20:51)
[2021-01-30 13:44] VITALS: BMI 32.0
[2021-01-30] MEDS: Insulin Regular 300 UNITS/3 ML VIAL SC PRN (16:22)
[2021-01-30] MEDS: Melatonin 3 MG TAB PO SCH (21:39)
[2021-01-30] MEDS: Enoxaparin Sodium 40 MG/0.4 ML SYRINGE SC SCH ×2 (21:39→21:56)
[2021-01-31 03:58] LABS: #Lymphocytes 0.7 thou/uL (1.20-3.40); #Monocytes 0.5 thou/uL (0.11-0.59); #Neutrophils 13.4 thou/uL (1.40-6.50); %Eosinophils 0.1 % (0.0-10.0); %Monocytes 3.2 % (0.0-10.0); %Neutrophils 91.7 % (42.0-75.0); Hemoglobin 8.3 g/dL (12.0-16.0); Mean Corpuscular HGB CONC 33.3 g/dL (32.0-36.0); Mean Corpuscular Hemoglobin 30.5 pg (27.0-31.0); Mean Corpuscular Volume 91.6 fL (78.0-98.0); Mean Platelet Volume 8.5 fL (7.4-10.4); Platelet Count 135 thou/uL (130-400); RBC Distribution Width 15.3 % (11.5-14.5); Red Blood Cell (RBC) Count 2.73 mill/uL (4.20-5.40); White Blood Cell (WBC) Count 14.6 thou/uL (4.8-10.8)
[2021-01-31 04:52] LABS: Chloride 117 mmol/L (98-107); Potassium 3.7 mmol/L (3.5-5.1); Sodium 152 mmol/L (136-145)
[2021-01-31 04:53] LABS: Calcium 8.1 mg/dL (7.8-10.44); Glucose 133 mg/dL (83-110)
[2021-01-31 04:55] LABS: Carbon Dioxide 28 mmol/L (23-31)
[2021-01-31 04:56] LABS: Phosphorus 2.4 mg/dL (2.3-4.7)
[2021-01-31 04:57] LABS: BUN (Urea Nitrogen) 47 mg/dL (9.8-20.1); Calc. Creatinine Clearance 109 mL/min (70-130)
[2021-01-31 05:15] LABS: Anion Gap 11 mmol/L (10-20)
[2021-01-31] MEDS: Diltiazem 125 MG in Sodium Chloride 0.9% 100 ML IVPB SCH ×2 (05:48→23:14)
[2021-01-31 06:34] LABS: Magnesium 2.1 mg/dL (1.6-2.6)
[2021-01-31 06:52] LABS: Base Excess (BEa) 1.5 mEq/L (-2.0 to +3.0); CO2 Tension 55.3 mmHg (35.0-45.0); Calcium, Ionized (arterial) 1.22 mmol/L (1.12-1.30); Hemoglobin (Hb) 8.3 g/dL (12.0-16.0); O2 Tension (PaO2), arterial 83.6 mmHg (> 70.0); Potassium - ABG Lab 3.55 mmol/L (3.70-5.30); pH, Arterial 7.32 (7.35-7.45)
[2021-01-31 07:10] LABS: Puncture Site RRA
[2021-01-31 07:11] LABS: ALV-art Gradient 346.375 mmHg (0-20)
[2021-01-31] MEDS: Mometasone 200 MCG/Formoterol 5 MCG 120 PUFF INHALER INH SCH ×2 (07:12→18:16)
[2021-01-31] MEDS: Saccharomyces boulardii 250 MG CAP PO SCH (09:49)
[2021-01-31] MEDS: Senokot S 8.6-50 MG TAB PO SCH ×2 (09:49→20:48)
[2021-01-31] MEDS: Dronedarone HCl 400 MG TAB PO SCH ×2 (09:49→18:26)
[2021-01-31] MEDS: Aspirin Chewable 81 MG TAB PO SCH (09:49)
[2021-01-31] MEDS: Famotidine 20 MG TAB PO SCH ×2 (09:49→20:48)
[2021-01-31] MEDS: Ezetimibe 10 MG TAB PO SCH (09:50)
[2021-01-31] MEDS: Polyethylene Glycol 3350 17 GM Packet PER TUBE SCH (09:50)
[2021-01-31] MEDS: DULoxetine 30 MG CAP PO SCH (09:50)
[2021-01-31] MEDS: methylPREDNISolone Sod Succ 40 MG VIAL IVP SCH (09:50)
[2021-01-31] MEDS: Dextrose 5% in Water 1,000 ML IV SCH (14:25)
[2021-01-31] MEDS: Melatonin 3 MG TAB PO SCH (20:48)
[2021-01-31] MEDS: Enoxaparin Sodium 40 MG/0.4 ML SYRINGE SC SCH (20:49)
[2021-02-01] MEDS ORDERED: Norepinephrine 8 MG in Dextrose 5% in Water 242 ML IVPB PRN (01:45)
[2021-02-01] MEDS ORDERED: Sodium Chloride 0.9% 500 ML IVPB SCH (01:59)
[2021-02-01] MEDS: Norepinephrine 8 MG/0.9% NS 250 ML IVPB PRN (02:42)
[2021-02-01 04:20] LABS: Hemoglobin 7.8 g/dL (12.0-16.0); Mean Corpuscular HGB CONC 30.6 g/dL (32.0-36.0); Mean Corpuscular Hemoglobin 28.8 pg (27.0-31.0); Mean Platelet Volume 10.1 fL (7.4-10.4); Platelet Count 121 thou/uL (130-400); RBC Distribution Width 15.5 % (11.5-14.5); White Blood Cell (WBC) Count 13.6 thou/uL (4.8-10.8)
[2021-02-01 04:38] LABS: Anion Gap 13 mmol/L (10-20); BUN (Urea Nitrogen) 52 mg/dL (9.8-20.1); Calc. Creatinine Clearance 74 mL/min (70-130); Calcium 7.7 mg/dL (7.8-10.44); Carbon Dioxide 25 mmol/L (23-31); Chloride 114 mmol/L (98-107); Glucose 162 mg/dL (83-110); Potassium 4.9 mmol/L (3.5-5.1); Sodium 147 mmol/L (136-145)
[2021-02-01 04:46] LABS: Anion Gap 17 mmol/L (10-20); BUN (Urea Nitrogen) 52 mg/dL (9.8-20.1); Calc. Creatinine Clearance 71 mL/min (70-130); Calcium 7.9 mg/dL (7.8-10.44); Carbon Dioxide 23 mmol/L (23-31); Chloride 114 mmol/L (98-107); Glucose 164 mg/dL (83-110); Potassium 4.9 mmol/L (3.5-5.1); Sodium 149 mmol/L (136-145)
[2021-02-01 04:59] LABS: Band 40 % (5-11); Lymphocytes 10 % (21-51); MDiff Complete? YES; Monocytes 3 % (0-10); Neutrophil 47 % (42-75)
[2021-02-01] MEDS: Insulin Regular 300 UNITS/3 ML VIAL SC PRN ×2 (06:10→22:56)
[2021-02-01] MEDS: Mometasone 200 MCG/Formoterol 5 MCG 120 PUFF INHALER INH SCH ×2 (07:12→18:17)
[2021-02-01 07:23] LABS: Actual Bicarbonate (HCO3a) 25.1 mEq/L (22-28); Base Excess (BEa) -1.2 mEq/L (-2.0 to +3.0); CO2 Tension 51.5 mmHg (35.0-45.0); Calcium, Ionized (arterial) 1.16 mmol/L (1.12-1.30); Carboxyhemoglobin (COHb) 0.7 gm% (0.0-3.0); Hemoglobin (Hb) 7.3 g/dL (12.0-16.0); Potassium - ABG Lab 4.01 mmol/L (3.70-5.30); pH, Arterial 7.31 (7.35-7.45)
[2021-02-01 07:25] LABS: ALV-art Gradient 304.825 mmHg (0-20); O2 Tension (PaO2), arterial 58.6 mmHg (> 70.0); Puncture Site RRA
[2021-02-01] MEDS: Sodium Chloride 0.9% 1,000 ML IV SCH ×4 (08:04→21:09)
[2021-02-01] MEDS: Saccharomyces boulardii 250 MG CAP PO SCH (08:09)
[2021-02-01] MEDS: Dronedarone HCl 400 MG TAB PO SCH ×2 (08:09→16:57)
[2021-02-01] MEDS: Senokot S 8.6-50 MG TAB PO SCH ×2 (08:10→21:47)
[2021-02-01] MEDS: Ezetimibe 10 MG TAB PO SCH (08:10)
[2021-02-01] MEDS: methylPREDNISolone Sod Succ 40 MG VIAL IVP SCH (08:10)
[2021-02-01] MEDS: Famotidine 20 MG TAB PO SCH ×2 (08:10→21:47)
[2021-02-01] MEDS: Aspirin Chewable 81 MG TAB PO SCH (08:10)
[2021-02-01] MEDS: Polyethylene Glycol 3350 17 GM Packet PER TUBE SCH (08:11)
[2021-02-01] MEDS: DULoxetine 30 MG CAP PO SCH (09:43)
[2021-02-01 18:01] LABS: Bilirubin Negative (Negative); Blood, Urine Negative (Negative); Glucose, Urine (Dipstick) Normal (Negative); Ketone, Urine Negative (Negative); Leukocyte 75 Leu/uL (Negative); Nitrite Negative (Negative); Protein, Urine (Dipstick) 70 mg/dL (Neg-Trace); Specific Gravity, Urine 1.017 (1.002-1.036); Squamous Epithelial 0-3 HPF (0-3); Urobilinogen Normal mg/dL (Less than 2); pH, Urine 5.5 (5.0-9.0)
[2021-02-01 18:03] LABS: Clarity Turbid (Clear)
[2021-02-01 18:17] LABS: RBC/HPF 0-3 HPF (0-3)
[2021-02-01 18:18] LABS: Bacteria/HPF 2+ HPF (None Seen); Yeast-Budding 4+ HPF (None Seen); Yeast-Hyphae 2+ HPF (None Seen)
[2021-02-01 18:20] LABS: Urine Culture Reflex Yes Yes
[2021-02-01] MEDS: Dextrose 5% in Water 1,000 ML IV SCH (21:42)
[2021-02-01] MEDS: Enoxaparin Sodium 40 MG/0.4 ML SYRINGE SC SCH (21:46)
[2021-02-01] MEDS: Melatonin 3 MG TAB PO SCH (21:47)
[2021-02-02] MEDS: Diltiazem 125 MG in Sodium Chloride 0.9% 100 ML IVPB SCH (00:26)
[2021-02-02 04:05] LABS: Hemoglobin 6.9 g/dL (12.0-16.0); Mean Corpuscular Hemoglobin 29.1 pg (27.0-31.0); Mean Corpuscular Volume 93.9 fL (78.0-98.0); Mean Platelet Volume 10.6 fL (7.4-10.4); Platelet Count 143 thou/uL (130-400); RBC Distribution Width 15.9 % (11.5-14.5); Red Blood Cell (RBC) Count 2.36 mill/uL (4.20-5.40); White Blood Cell (WBC) Count 16.8 thou/uL (4.8-10.8)
[2021-02-02 04:22] LABS: Anion Gap 18 mmol/L (10-20); BUN (Urea Nitrogen) 64 mg/dL (9.8-20.1); Calc. Creatinine Clearance 43 mL/min (70-130); Carbon Dioxide 19 mmol/L (23-31); Chloride 110 mmol/L (98-107); Glucose 185 mg/dL (83-110); Potassium 4.5 mmol/L (3.5-5.1); Sodium 142 mmol/L (136-145)
[2021-02-02 05:26] LABS: Band 36 % (5-11); Lymphocytes 8 % (21-51); MDiff Complete? YES; Monocytes 1 % (0-10); Neutrophil 55 % (42-75)
[2021-02-02] MEDS: Insulin Regular 300 UNITS/3 ML VIAL SC PRN (05:53)
[2021-02-02] MEDS: Sodium Chloride 0.9% 1,000 ML IV SCH (05:57)
[2021-02-02] MEDS: Dextrose 5% in Water 1,000 ML IV SCH ×2 (05:59→06:00)
[2021-02-02] MEDS: Mometasone 200 MCG/Formoterol 5 MCG 120 PUFF INHALER INH SCH ×2 (07:22→18:11)
[2021-02-02 07:38] LABS: Base Excess (BEa) -8.7 mEq/L (-2.0 to +3.0); Calcium, Ionized (arterial) 1.05 mmol/L (1.12-1.30); Carboxyhemoglobin (COHb) 0.6 gm% (0.0-3.0); Hemoglobin (Hb) 7.1 g/dL (12.0-16.0); O2 Tension (PaO2), arterial 71.9 mmHg (> 70.0)
[2021-02-02 07:41] LABS: CO2 Tension 73.7 mmHg (35.0-45.0); Puncture Site LRA; pH, Arterial 7.07 (7.35-7.45)
[2021-02-02 07:42] LABS: ALV-art Gradient 513.325 mmHg (0-20)
[2021-02-02] MEDS: Saccharomyces boulardii 250 MG CAP PO SCH (09:02)
[2021-02-02] MEDS: methylPREDNISolone Sod Succ 40 MG VIAL IVP SCH (09:02)
[2021-02-02] MEDS: Ezetimibe 10 MG TAB PO SCH (09:03)
[2021-02-02] MEDS: Polyethylene Glycol 3350 17 GM Packet PER TUBE SCH (09:03)
[2021-02-02] MEDS: Dronedarone HCl 400 MG TAB PO SCH ×2 (09:03→16:14)
[2021-02-02] MEDS: Aspirin Chewable 81 MG TAB PO SCH (09:03)
[2021-02-02] MEDS: DULoxetine 30 MG CAP PO SCH (09:03)
[2021-02-02] MEDS: Senokot S 8.6-50 MG TAB PO SCH ×2 (09:04→20:48)
[2021-02-02] MEDS ORDERED: Furosemide 40 MG/4 ML VIAL SLOW IVP SCH (09:30)
[2021-02-02] MEDS: Norepinephrine 8 MG/0.9% NS 250 ML IVPB PRN (11:53)
[2021-02-02 15:51] LABS: Hemoglobin 7.6 g/dL (12.0-16.0)
[2021-02-02] MEDS: MEROPENEM 1 GM/50 ML 1 GM in Premix Bag 1 BAG IVPB SCH (16:14)
[2021-02-02] MEDS: Enoxaparin Sodium 40 MG/0.4 ML SYRINGE SC SCH (20:48)
[2021-02-02] MEDS: Melatonin 3 MG TAB PO SCH (20:48)
[2021-02-02] MEDS ORDERED: Famotidine 20 MG TAB PO SCH (21:00)
[2021-02-03] MEDS: MEROPENEM 1 GM/50 ML 1 GM in Premix Bag 1 BAG IVPB SCH (03:29)
[2021-02-03 04:31] LABS: Anion Gap 20 mmol/L (10-20); BUN (Urea Nitrogen) 84 mg/dL (9.8-20.1); Calc. Creatinine Clearance 33 mL/min (70-130); Carbon Dioxide 17 mmol/L (23-31); Chloride 108 mmol/L (98-107); Glucose 98 mg/dL (83-110); Potassium 4.5 mmol/L (3.5-5.1); Sodium 140 mmol/L (136-145)
[2021-02-03 04:43] LABS: Band 34 % (5-11); Hemoglobin 6.7 g/dL (12.0-16.0); Lymphocytes 3 % (21-51); MDiff Complete? YES; Mean Corpuscular HGB CONC 33.2 g/dL (32.0-36.0); Mean Corpuscular Hemoglobin 29.9 pg (27.0-31.0); Mean Corpuscular Volume 90.2 fL (78.0-98.0); Mean Platelet Volume 10.3 fL (7.4-10.4); Monocytes 4 % (0-10); Neutrophil 59 % (42-75); Nucleated RBC 1 % (0); Platelet Count 90 thou/uL (130-400); Platelet Morphology Comment Appears Decreased; Red Blood Cell (RBC) Count 2.24 mill/uL (4.20-5.40); White Blood Cell (WBC) Count 9.2 thou/uL (4.8-10.8)
[2021-02-03] MEDS: Mometasone 200 MCG/Formoterol 5 MCG 120 PUFF INHALER INH SCH ×2 (07:01→18:03)
[2021-02-03 08:07] LABS: Actual Bicarbonate (HCO3a) 18.7 mEq/L (22-28); Base Excess (BEa) -7.8 mEq/L (-2.0 to +3.0); CO2 Tension 44.4 mmHg (35.0-45.0); Calcium, Ionized (arterial) 0.96 mmol/L (1.12-1.30); Carboxyhemoglobin (COHb) 0.5 gm% (0.0-3.0); O2 Tension (PaO2), arterial 67.2 mmHg (> 70.0)
[2021-02-03 08:10] LABS: pH, Arterial 7.24 (7.35-7.45)
[2021-02-03 08:11] LABS: Hemoglobin (Hb) 4.7 g/dL (12.0-16.0)
[2021-02-03 08:12] LABS: Puncture Site RRA
[2021-02-03] MEDS: Aspirin Chewable 81 MG TAB PO SCH (09:28)
[2021-02-03] MEDS: Polyethylene Glycol 3350 17 GM Packet PER TUBE SCH (09:28)
[2021-02-03] MEDS: Senokot S 8.6-50 MG TAB PO SCH (09:28)
[2021-02-03] MEDS: Ezetimibe 10 MG TAB PO SCH (09:28)
[2021-02-03] MEDS: Saccharomyces boulardii 250 MG CAP PO SCH (09:28)
[2021-02-03] MEDS: Dronedarone HCl 400 MG TAB PO SCH ×2 (09:28→16:47)
[2021-02-03] MEDS: methylPREDNISolone Sod Succ 40 MG VIAL IVP SCH (09:29)
[2021-02-03] MEDS: DULoxetine 30 MG CAP PO SCH (09:29)
[2021-02-03 14:38] LABS: Hemoglobin 7.3 g/dL (12.0-16.0); Mean Corpuscular HGB CONC 29.9 g/dL (32.0-36.0); Mean Corpuscular Hemoglobin 27.4 pg (27.0-31.0); Mean Corpuscular Volume 91.8 fL (78.0-98.0); Mean Platelet Volume 10.3 fL (7.4-10.4); Platelet Count 80 thou/uL (130-400); RBC Distribution Width 14.7 % (11.5-14.5); Red Blood Cell (RBC) Count 2.66 mill/uL (4.20-5.40); White Blood Cell (WBC) Count 8.6 thou/uL (4.8-10.8)
[2021-02-03 14:56] LABS: Band 19 % (5-11); Lymphocytes 5 % (21-51); MDiff Complete? YES; Metamyelocyte 2 % (0-0); Monocytes 1 % (0-10); Neutrophil 73 % (42-75); Nucleated RBC 2 % (0); Ovalocytes SLIGHT = 2-5 cells (100X) (0-1/hpf); Platelet Morphology Comment Appears Decreased; Polychromasia SLIGHT = 2-3 cells (100X) (0-2/hpf); Vacuoles SLIGHT
[2021-02-03] MEDS ORDERED: Meropenem 500 MG in Sodium Chloride 0.9% 100 ML IVPB SCH (16:00)
[2021-02-03 18:05] VITALS: BP 79/44
[2021-02-03 18:46] VITALS: TEMP 100.2
[2021-02-03] MEDS ORDERED: Morphine 4 MG/ML VIAL SLOW IVP PRN ×2 (20:02→20:03)
[2021-02-03] MEDS ORDERED: Lorazepam 2 MG/ML VIAL SLOW IVP PRN (20:05)
[2021-02-03] MEDS ORDERED: Enoxaparin Sodium 30 MG/0.3 ML SYRINGE SC SCH (21:00)
== END 2021-02-03 20:48 | disposition expired | DRG 4 ==
LOC: ERS 02:42 → ERHOLD 05:53 → OBSVTOIN 08:33 → IMCU/EMU 10:11 → 2NO 01-06 19:14 → CCU 01-08 08:43
PROVIDERS: ADMIT Student in an Organized Health Care Education/Training Program; ATTEND Internal Medicine
PROC: 5A09357 Assistance with Respiratory Ventilation, Less than 24 Consecutive Hours, Continuous Positive Airway Pressure (ICD-10-PCS; principal; 2021-01-08)
PROC: 5A1945Z Respiratory Ventilation, 24-96 Consecutive Hours (ICD-10-PCS; 2021-01-08)
PROC: 0BH18EZ Insertion of Endotracheal Airway into Trachea, Via Natural or Artificial Opening Endoscopic (ICD-10-PCS; 2021-01-08)
PROC: 0B9D8ZX Drainage of Right Middle Lung Lobe, Via Natural or Artificial Opening Endoscopic, Diagnostic (ICD-10-PCS; 2021-01-08)
PROC: 0B918ZZ Drainage of Trachea, Via Natural or Artificial Opening Endoscopic (ICD-10-PCS; 2021-01-08)
PROC: 0DH67UZ Insertion of Feeding Device into Stomach, Via Natural or Artificial Opening (ICD-10-PCS; 2021-01-08)
PROC: 30233N1 Transfusion of Nonautologous Red Blood Cells into Peripheral Vein, Percutaneous Approach (ICD-10-PCS; 2021-01-09)
PROC: 5A1955Z Respiratory Ventilation, Greater than 96 Consecutive Hours (ICD-10-PCS; 2021-01-11)
PROC: 0BH17EZ Insertion of Endotracheal Airway into Trachea, Via Natural or Artificial Opening (ICD-10-PCS; 2021-01-11)
PROC: 5A09357 Assistance with Respiratory Ventilation, Less than 24 Consecutive Hours, Continuous Positive Airway Pressure (ICD-10-PCS; 2021-01-11)
PROC: 0B110F4 Bypass Trachea to Cutaneous with Tracheostomy Device, Open Approach (ICD-10-PCS; 2021-01-20)
PROC: 0DH63UZ Insertion of Feeding Device into Stomach, Percutaneous Approach (ICD-10-PCS; 2021-01-20)
PROC: 3E033XZ Introduction of Vasopressor into Peripheral Vein, Percutaneous Approach (ICD-10-PCS; 2021-02-01)
DX: J80 Acute respiratory distress syndrome (principal); I50.33 Acute on chronic diastolic (congestive) heart failure; J15.1 Pneumonia due to Pseudomonas; J15.6 Pneumonia due to other Gram-negative bacteria; A41.9 Sepsis, unspecified organism; R65.21 Severe sepsis with septic shock; J44.1 Chronic obstructive pulmonary disease with (acute) exacerbation; R04.89 Hemorrhage from other sites in respiratory passages; I48.92 Unspecified atrial flutter; D62 Acute posthemorrhagic anemia; N17.9 Acute kidney failure, unspecified; E87.0 Hyperosmolality and hypernatremia; E46 Unspecified protein-calorie malnutrition; G72.81 Critical illness myopathy; B37.89 Other sites of candidiasis; G93.1 Anoxic brain damage, not elsewhere classified; J44.0 Chronic obstructive pulmonary disease with (acute) lower respiratory infection; Z66 Do not resuscitate; Z51.5 Encounter for palliative care; Z20.822 Contact with and (suspected) exposure to COVID-19; I48.0 Paroxysmal atrial fibrillation; I95.2 Hypotension due to drugs; T46.1X5A Adverse effect of calcium-channel blockers, initial encounter; E78.5 Hyperlipidemia, unspecified; M06.9 Rheumatoid arthritis, unspecified; E78.00 Pure hypercholesterolemia, unspecified; F41.9 Anxiety disorder, unspecified; F32.A Depression, unspecified; Y95 Nosocomial condition; I25.10 Atherosclerotic heart disease of native coronary artery without angina pectoris; F17.210 Nicotine dependence, cigarettes, uncomplicated; I73.9 Peripheral vascular disease, unspecified; E87.6 Hypokalemia; I45.81 Long QT syndrome; R13.10 Dysphagia, unspecified; E87.5 Hyperkalemia; M21.372 Foot drop, left foot; M21.371 Foot drop, right foot; N18.9 Chronic kidney disease, unspecified; D63.1 Anemia in chronic kidney disease; I25.2 Old myocardial infarction; Z88.1 Allergy status to other antibiotic agents; Z88.2 Allergy status to sulfonamides; Z88.8 Allergy status to other drugs, medicaments and biological substances; Z79.01 Long term (current) use of anticoagulants; Z79.82 Long term (current) use of aspirin; Z79.52 Long term (current) use of systemic steroids; Z79.899 Other long term (current) drug therapy; Z80.9 Family history of malignant neoplasm, unspecified; Z99.81 Dependence on supplemental oxygen; Z68.34 Body mass index [BMI] 34.0-34.9, adult
CPT/HCPCS: 31624; 36415; 36416; 36430; 36600; 71045; 71250; 80048; 80053; 80202; 81001; 82553; 82805; 83520; 83735; 83880; 84100; 84145; 84484; 85007; 85025; 85027; 86038; 86225; 86256; 86850; 86860; 86870; 86880; 86900; 86901; 86922; 87040; 87070; 87077; 87086; 87102; 87116; 87186; 87205; 87206; 88112; 88305; 88312; 88313; 93005; 93010; 94002; 94003; 94640; 94660; 95712; 95819; 95957; 96372; 96374; 96375; G0378; J0282; J0360; J0692; J0696; J0713; J1160; J1170; J1650; J1815; J1940; J1956; J2060; J2185; J2248; J2250; J2270; J2405; J2704; J2920; J2930; J3010; J3370; J3490; J7030; J7050; J7070; J7512; J7620; P9016; S0020; S0028; U0002; U0003; U0005